=== PATIENT | female | born 1940 | race Caucasian/White ===

== ENCOUNTER 2019-02-03 17:22 | Emergency (ER) | payer MEDICARE ==
[~2019-02-03] VITALS: Ht 165.1 cm; Wt 65.3 kg
[~2019-02-03 17:22] MED LIST: BUPR75TA3; SERT25TA
[2019-02-03 17:24] VITALS: BP 132/57
== END 2019-02-03 19:42 | disposition home or self-care (01) ==
LOC: ER 17:26
DX: R53.1 Weakness (principal); F32.9 Major depressive disorder, single episode, unspecified; Z60.2 Problems related to living alone

== ENCOUNTER 2021-04-09 11:51 | Inpatient (IN) | payer OTHER, MEDICARE ==
[~2021-04-09] VITALS: Ht 152.4 cm; Wt 55.8 kg
--- NOTE | 2021-04-09 12:13 | NUR ---
BIB Sister "Long time history of depression was refer here to see Psych" Patient a/ox4, breathing even and unlabored, no sob noted. Assisted to bed.
[2021-04-09 12:30] LABS: BASOPHILS % (AUTO) 0.2 % (0.0-2.0); EOSINOPHILS % (AUTO) 0.4 % (0.0-6.0); HEMATOCRIT 37 % (33-45); HEMOGLOBIN 12.4 g/dL (11.5-14.8); LYMPHOCYTES # (AUTO) 0.9 K/uL (0.8-4.8); LYMPHOCYTES % (AUTO) 9.1 % (20.0-44.0); MEAN CORPUSCULAR HGB CONC 33 g/dl (31.0-36.0); MEAN CORPUSCULAR VOLUME 79 fL (82-100); MONOCYTES # (AUTO) 0.8 K/uL (0.1-1.30); MONOCYTES % (AUTO) 7.6 % (2.0-12.0); NEUTROPHILS # (AUTO) 8.4 K/uL (1.8-8.9); NEUTROPHILS % (AUTO) 82.7 % (43.0-81.0); PLATELET COUNT (AUTO) 431 K/uL (150-450); RED BLOOD CELL COUNT(AUTO) 4.75 MIL/uL (4.0-5.2); WHITE BLOOD COUNT (AUTO) 10.2 K/uL (4.3-11.0)
--- NOTE | 2021-04-09 12:30 | NUR ---
BLOOD DRAWN AND SENT.
[2021-04-09 12:36] LABS: CALCIUM, SERUM 9.3 mg/dL (8.5-10.1); CARBON DIOXIDE 24 mmol/L (21-32); CHLORIDE 93 mmol/L (98-107); CREATININE 0.8 mg/dL (0.6-1.3); GLUCOSE 149 mg/dL (74-106); POTASSIUM 4.1 mmol/L (3.5-5.1); SODIUM SERUM 126 mmol/L (136-145); UREA NITROGEN, BLOOD 13 mg/dL (7-18)
--- NOTE | 2021-04-09 12:40 | NUR ---
[facility] UA OBTAINED AND SENT TOLAB
[2021-04-09 12:47] LABS: BILIRUBIN,URINE Negative (NEGATIVE); COLOR,URINE YELLOW (YELLOW); LEUKOCYTE ESTERASE ,URINE Negative (NEGATIVE); NITRITE, URINE Negative (NEGATIVE); PH,URINE 6.5 (5.0-8.0); PROTEIN,URINE Negative (NEGATIVE); UGLUCOSE Negative (NEGATIVE); UROBILINOGEN,URINE 0.2 EU/dL (0.2)
[2021-04-09 12:51] LABS: ACETAMINOPHEN 0 ug/ml (10-30); ALANINE AMINOTRANSFERASE 33 U/L (12-78); ALBUMIN 4.4 g/dL (3.4-5.0); ALCOHOL, BLOOD < 3 mg/dL (0-0); ALKALINE PHOSPHATASE 63 U/L (46-116); ASPARTATE AMINOTRANSFERASE 24 U/L (15-37); BILIRUBIN,DIRECT 0.2 mg/dL (0.0-0.2); BILIRUBIN,TOTAL 0.7 mg/dL (0.2-1.0); TOTAL PROTEIN, SERUM 7.5 g/dL (6.4-8.2)
--- NOTE | 2021-04-09 12:54 | NUR ---
covid swab sent.
[2021-04-09] MEDS ORDERED: MELO-105 PO (13:05)
[2021-04-09] MEDS ORDERED: ASPI-1420 PO (13:05)
[2021-04-09] MEDS ORDERED: SERT100T PO (13:05)
[2021-04-09] MEDS ORDERED: NAPR-1009 PO (13:05)
[2021-04-09] MEDS ORDERED: OMEP40CA21 PO (13:05)
[2021-04-09] MEDS ORDERED: LORA-259 PO (13:05)
[2021-04-09] MEDS ORDERED: ATOR20TA PO (13:05)
[2021-04-09] MEDS ORDERED: ANAG0.5C3 PO (13:05)
--- NOTE | 2021-04-09 13:31 | NUR ---
COAGULATOR SAW THE PATIENT AND WILL CALL [place] BAILIFF. LEFT A MESSAGE TO ART COMPUTER SYSTEMS TECHNOLOGY INSTRUCTOR.
--- NOTE | 2021-04-09 13:35 | NUR ---
Human Resources Intern consult: public services assistant consult requested for patient who is seeking psychiatric treatment. Patient is a 80-year-old, female. SW met with patient at her bedside in the emergency department. Patient presents with a depressed mood and flat affect. Patient's sister, Yomaira ([phone]) was at the bedside. Patient is alert and oriented x4. Per chart, patient was brought in by her sister on 04/09/21, seeking psychiatric treatment for patient with a history of Depression. Patient presents anxious and selectively mute. Patient was able to answer assessment questions by stating, 'yes' or 'no' or answer with short responses. Patient's sister was able to provide SW information to complete assessment. Patient's sister stated that the patient has been experiencing symptoms of Anxiety and Depression within the last week. Patient's sister stated that the patient has not been speaking much due to anxiousness. Patient currently lives alone at [address] [place] [address], [address] [address]; [phone]. Patient's sister stated that she provides the patient with support as needed. Patient is independent with her ADL's. Patient currently receives SSI. Patient's sister reported a "long history of Depression." Patient has been prescribed medication for Depression. Patient denied history of substance use. Patient denied current suicidal or homicidal ideation. SW offered patient outpatient counseling resources. Patient accepted the resources and thanked GREGORY. Patient and patient's sister requested voluntary GPS admission. SW will follow up with intake department regarding GPS admission and contact mold holder, Hossein Farias LCSW, to evaluate the patient. PLAN: SW will contact intake department for GPS admission request and contact mold holder, Hossein Farias LCSW to evaluate the patient. RESOURCES: Counseling--[facility]patient [facility] [address], [place] [address] (Specializes in in-depth psychotherapy for emotional distress: anxiety, depression, interpersonal conflicts, life transitions, childhood abuse) [facility] [address] [place] [address] (Assist with solving problem marital difficulties, separation & divorce, aging parents, & grief, chronic & terminal illness) [facility] [address] [place] [address] (Deal with loss & grief, anxiety, marital difficulties) [facility] [address], [address] [facility] [place] [address] (Provide in-home mental services to people who are incapable of leaving their homes) [facility] [address] [place] [address] Partial Hospitalization Program and Outpatient at [facility] [address] [place], [place] [phone] [facility] [address] [place] [id number] PSYCHIATRIC OUTPATIENT SERVICES [facility] Partial Hospitalization and Intensive Outpatient Program (Managed Care and [place] Only)[address] [facility] [phone] [facility] Partial Hospitalization and Outpatient [id number] [place], [place] [phone] [facility] Partial Hospitalization and Outpatient [id number] [place], [place] [phone] [address] [id number] [facility] [phone] [facility] [address] Partial Hospitalization and Outpatient [id number] [facility] [address] [phone]
--- NOTE | 2021-04-09 13:40 | NUR ---
Care Navigator note: GREGORY contacted intake department, [phone] to discuss patient's eligibility for GPS admission. Jackelin at intake dept. stated that she is unsure at this time and will follow up with GREGORY later today. GREGORY contacted triage clinician, Hossein Farias LCSW, , to evaluate the patient. Pending assessment.
--- NOTE | 2021-04-09 15:00 | NUR ---
ART IMAGERY ANALYST AT BEDSIDE FOR EVAL
--- NOTE | 2021-04-09 15:57 | NUR ---
REPORT GIVEN TO DEANDRE GARCIA FOR BRITTANY.
[2021-04-09] MEDS ORDERED: MAG HYDROX/AL HYDROX/SIMETH 30 ML UDC PO PRN (17:00)
[2021-04-09] MEDS ORDERED: MAGNESIUM HYDROXIDE 30 ML UDC PO PRN (17:00)
[2021-04-09] MEDS ORDERED: BLOOD SUGAR DIAGNOSTIC 1 EACH STRIP IN ONE (17:00)
[2021-04-09] MEDS ORDERED: ACETAMINOPHEN 325 MG TABLET PO PRN (17:00)
[2021-04-09 17:02] VITALS: BP 162/81
--- NOTE | 2021-04-09 17:34 | NUR ---
GPS ADMISSION NOTE: RECEIVED PATIENT FROM [facility] PATIENT ARRIVED ON THIS UNIT WITH 1 EMT ESCORT. PATIENT ADMITTED ON A 5150 HOLD FOR GD PER HOLD PATIENT IS CONFUSED AND DISORGANIZED .DEPRESSED AND FLAT AFFECT VERY POOR INSIGHT PATIENT HAS POOR INPOLSE CONTROL AND IMPAIRED JUDGMENT. THE 5150 WAS REVIEWED AND THE DOCUMENTATION IN THE 5150 HOLD APPEARS TO REFLECT THE PRESENTATION OF THE PATIENT. UPON FACE TO FACE ASSESSMENT PATIENT IS CURRENTLY LYING IN BED AWAKE, HAS NO S/S OR COMPLAINTS OF PAIN. PATIENT IS DISPLAYING NO S/S OF APPARENT DISTRESS. PATIENT BREATHING IS UNLABORED WITH EQUAL RISE AND FALL OF THE CHEST. PATIENT IS ALERT AND ORIENTATED X 1 ON ROOM AIR. PATIENT ASSISTED WITH TURING AND REPOSITIONING Q2HR AND PRN FOR COMFORT AND CIRCULATION. PATIENT HAS NO NEEDS AT THIS TIME. PATIENT IS NOTED TO BE DEPRESSED , DISHEVELED, DISORGANIZED,CONFUSED PATIENT DENIES SUICIDE IDEATIONS AND HOMICIDAL IDEATIONS AT THIS TIME. PATIENT IS UNDER THE PSYCHIATRIC CARE OF DR. SHARMA NOTIFIED WITH ADMITTING ORDERS . PATIENT BELONGINGS WERE INVENTORIED AND CHECKED FOR CONTRABAND. ALL CONTRABAND REMOVED AND STORED IN PATIENT HALLWAY LOCKER. PATIENT ADVANCED DIRECTIVES PREFERENCE, IMMUNIZATIONS QUESTIONER COMPLETED. PATIENT REFUSED PICTURES, SKIN ASSESSMENT, PATIENTS RIGHTS HANDBOOK, AND ALSO REFUSED TO SIGNS ALL PAPER WORK. PATIENT ORIENTATED TO ROOM, FLOOR, AND STAFF WITH ALL QUESTIONS ANSWERED. PATIENT EDUCATED ON THE USE OF THE CALL MICHELE. PATIENT BED SIDE RAILS ARE UP X 2 FOR SAFETY. PATIENT BED IS LOCKED, LOW AND I WILL CONTINUE TO MONITOR THIS PATIENT Q 15 MIN WITH THE HELP OF STAFF TO MAINTAIN SAFETY.
[2021-04-09] MEDS: LORAZEPAM 0.5 MG TABLET PO PRN (20:16)
--- NOTE | 2021-04-09 20:19 | NUR ---
RN NOTES: ANXIETY PT. C/O ANXIOUS ATIVAN 0.5 MG PO PRN GIVEN PER PT. REQUEST , WILL CONTINUE TO MONITOR.
[2021-04-09 20:36] VITALS: BP 170/78
[2021-04-09 21:30] VITALS: BP 150/78
[2021-04-09 22:30] VITALS: BP 140/75
[2021-04-09 23:50] VITALS: BP 135/77
[2021-04-10 08:00] VITALS: BP 159/68
[2021-04-10] MEDS: ENSURE ENLIVE CHOC 237 ML CAN PO SCH ×2 (08:45→17:35)
[2021-04-10] MEDS ORDERED: MELOXICAM 7.5 MG TABLET PO PRN (10:30)
[2021-04-10] MEDS: SERTRALINE HCL 25 MG TABLET PO SCH (12:49)
[2021-04-10 16:00] VITALS: BP 160/85
--- NOTE | 2021-04-10 17:33 | NUR ---
URINE OBTAINED AND LAB NOTIFIED TO WIRELESS SALES REPRESENTATIVE SPECIMEN.
[2021-04-10] MEDS: ANAGRELIDE HCL 0.5 MG CAPSULE PO SCH (17:35)
[2021-04-10 20:00] VITALS: BP 159/74
[2021-04-10 20:10] VITALS: BP 136/56
[2021-04-10] MEDS: NAPROXEN 500 MG TABLET PO PRN (22:15)
--- NOTE | 2021-04-10 22:15 | NUR ---
GPS RN NOTES NAPROXEN GIVEN AT THIS FOR PAIN PER PATIENT REQUEST.
[2021-04-10] MEDS: ATORVASTATIN 10 MG TABLET PO SCH (22:16)
[2021-04-11] MEDS: TEMAZEPAM 7.5 MG CAPSULE PO PRN ×2 (00:08→21:18)
--- NOTE | 2021-04-11 00:13 | NUR ---
GPS RN NOTES PATIENT REPORT OF HAVING HARD TIME SLEEPING, I OFFERED IF SHE WANTS SOME SLEEPING MEDICATION. SHE SAID NO AT FIRST AND LATER CHANGED HER MIND. GIVEN RESTORIL 7.5 MG PRN. WILL REASSESS.
[2021-04-11] MEDS: LORAZEPAM 0.5 MG TABLET PO PRN (05:21)
--- NOTE | 2021-04-11 05:21 | NUR ---
GPS RN NOTES PATIENT ASKED FOR ATIVAN AT THIS TIME. GIVEN 0.5 MG OF ATIVAN PRN.
--- NOTE | 2021-04-11 06:54 | NUR ---
GPS RN CLOSING NOTE PATIENT IN BED WITH EYES CLOSED, EASY TO AROUSE. NO S/S OF DISTRESS. NO C/O PAIN DONNA. ALL NEEDS ATTENDED. SCHED MEDS ADMINISTERED. SAFETY KEPT THE WHOLE SHIFT. DID NOT REPORT ANY SUICIDAL IDEATION OR HOMICIDAL IDEATION. NO SIGNIFICANT CHANGE SINCE LAST SHIFT. WILL ENDORSE CARE TO MORNING RN.
[2021-04-11 07:07] LABS: BASOPHILS % (AUTO) 0.4 % (0.0-2.0); HEMATOCRIT 35 % (33-45); HEMOGLOBIN 11.8 g/dL (11.5-14.8); LYMPHOCYTES # (AUTO) 1.6 K/uL (0.8-4.8); LYMPHOCYTES % (AUTO) 19.1 % (20.0-44.0); MEAN CORPUSCULAR HGB CONC 34 g/dl (31.0-36.0); MEAN CORPUSCULAR VOLUME 79 fL (82-100); MONOCYTES # (AUTO) 0.8 K/uL (0.1-1.30); MONOCYTES % (AUTO) 9.3 % (2.0-12.0); NEUTROPHILS # (AUTO) 5.9 K/uL (1.8-8.9); NEUTROPHILS % (AUTO) 70.2 % (43.0-81.0); PLATELET COUNT (AUTO) 425 K/uL (150-450); RED BLOOD CELL COUNT(AUTO) 4.49 MIL/uL (4.0-5.2); WHITE BLOOD COUNT (AUTO) 8.4 K/uL (4.3-11.0)
[2021-04-11 07:33] LABS: CALCIUM, SERUM 9.4 mg/dL (8.5-10.1); CREATININE 0.7 mg/dL (0.6-1.3); POTASSIUM 4.2 mmol/L (3.5-5.1)
[2021-04-11 08:00] VITALS: BP 156/73
[2021-04-11] MEDS: ENSURE ENLIVE CHOC 237 ML CAN PO SCH ×2 (08:27→16:18)
[2021-04-11] MEDS: PANTOPRAZOLE 40 MG/PACK PACK NG SCH (08:27)
[2021-04-11] MEDS: ASPIRIN EC 81 MG TABLET.DR PO SCH (08:27)
[2021-04-11] MEDS: NAPROXEN 500 MG TABLET PO PRN (08:27)
[2021-04-11] MEDS: ANAGRELIDE HCL 0.5 MG CAPSULE PO SCH ×2 (08:35→16:32)
[2021-04-11] MEDS: SERTRALINE HCL 25 MG TABLET PO SCH (12:06)
[2021-04-11 16:00] VITALS: BP 149/72
[2021-04-11 20:26] VITALS: BP 165/92
[2021-04-11] MEDS: ATORVASTATIN 10 MG TABLET PO SCH (21:12)
[2021-04-11] MEDS: hydrALAZINE HCL 25 MG TABLET PO PRN (21:16)
[2021-04-12 08:00] VITALS: BP 159/76
[2021-04-12] MEDS: ASPIRIN EC 81 MG TABLET.DR PO SCH (08:42)
[2021-04-12] MEDS: PANTOPRAZOLE 40 MG/PACK PACK NG SCH (08:42)
[2021-04-12] MEDS: ENSURE ENLIVE CHOC 237 ML CAN PO SCH ×2 (08:44→17:06)
[2021-04-12] MEDS: ANAGRELIDE HCL 0.5 MG CAPSULE PO SCH ×2 (08:56→17:05)
--- NOTE | 2021-04-12 12:13 | NUR ---
Initial Discharge Plan; Pt currently lives alone in an apartment located on [address] [place] [address] [address] [place] [address]; ([phone]). Per pt, she would like to return home after discharge. SW will work with the pt and MD regarding appropriate discharge planning. SW will form a safe and proper discharge.
[2021-04-12] MEDS: SERTRALINE HCL 25 MG TABLET PO SCH (12:18)
--- NOTE | 2021-04-12 15:32 | NUR ---
Family Contact: GREGORY contacted the pts sister, Yomaira ([phone]) and discussed pts potential discharge plan and treatment plan. She stated that she is not DPOA and should return home.
--- NOTE | 2021-04-12 15:35 | NUR ---
Individual Intervention: SW met with pt, pt inquired "Can I leave the hospital to go to work?" SW informed pt that she cannot leave hospital until she is stabilized and doctor approves discharge plan.
[2021-04-12 16:00] VITALS: BP 160/77
[2021-04-12 20:00] VITALS: BP 162/70
[2021-04-12] MEDS: hydrALAZINE HCL 25 MG TABLET PO PRN (20:36)
[2021-04-12] MEDS: ATORVASTATIN 10 MG TABLET PO SCH (21:45)
[2021-04-12] MEDS: TEMAZEPAM 7.5 MG CAPSULE PO PRN (21:46)
--- NOTE | 2021-04-12 21:48 | NUR ---
GPS RN NOTES: RESTORIL 7.5MG 1TAB GIVEN PO PRN ORDERED AT 2146. WILL CONTINUE TO MONITOR.
--- NOTE | 2021-04-13 06:38 | NUR ---
GPS RN CLOSING NOTES: PATIENT IS CURRENTLY SLEEPING. PATIENT SLEPT 5HRS THIS SHIFT. PATIENT WAS COMPLIANT WITH MEDICATION THIS SHIFT. NO S/S OF DISTRESS. RESPIRATION EVEN AND UNLABORED WITH EQUAL RISE AND FALL OF THE CHEST ON ROOM AIR. ALL PATIENT CARE NEEDS HAVE BEEN MET ANTICIPATED. BED IN LOWEST POSITION AND LOCKED, WITH SIDE RAILS UP X2 FOR SAFETY. WILL CONTINUE TO MONITOR FOR SAFETY, MOOD AND BEHAVIOR AND ENDORSE TO AM SHIFT.
[2021-04-13 08:00] VITALS: BP 156/78
[2021-04-13] MEDS: ANAGRELIDE HCL 0.5 MG CAPSULE PO SCH ×2 (08:26→18:01)
[2021-04-13] MEDS: ASPIRIN EC 81 MG TABLET.DR PO SCH (08:26)
[2021-04-13] MEDS: PANTOPRAZOLE 40 MG/PACK PACK NG SCH (08:27)
[2021-04-13] MEDS: ENSURE ENLIVE CHOC 237 ML CAN PO SCH ×2 (08:27→17:53)
[2021-04-13] MEDS ORDERED: AMLODIPINE BESYLATE 5 MG TABLET PO SCH (09:30)
[2021-04-13] MEDS: SERTRALINE HCL 25 MG TABLET PO SCH (13:58)
[2021-04-13 16:00] VITALS: BP 151/77
[2021-04-13 20:00] VITALS: BP 153/68
[2021-04-13 20:45] VITALS: BP 153/68
[2021-04-13] MEDS: ATORVASTATIN 10 MG TABLET PO SCH (21:14)
--- NOTE | 2021-04-14 00:43 | NUR ---
MS RN NOTES C/O GENERALIZED PAIN,MEDICATED WITH NAPROXEN 500MG PO ORDERED.
--- NOTE | 2021-04-14 06:51 | NUR ---
RN NOTE PATIENT SLEPT ABOUT 6 HOURS AT NIGHT. MED COMPLAINT. AMBULATORY/STEADY. NO ACUTE CHANGES NOTED THROUGH OUT THE SHIFT. WILL ENDORSE TO AM RN FOR CONTINUITY OF CARE.
[2021-04-14 08:00] VITALS: BP 148/79
[2021-04-14] MEDS: ENSURE ENLIVE CHOC 237 ML CAN PO SCH ×2 (08:33→16:58)
[2021-04-14] MEDS: PANTOPRAZOLE 40 MG/PACK PACK NG SCH (08:34)
[2021-04-14] MEDS: AMLODIPINE BESYLATE 5 MG TABLET PO SCH (08:34)
[2021-04-14] MEDS: ASPIRIN EC 81 MG TABLET.DR PO SCH (08:34)
[2021-04-14] MEDS: ANAGRELIDE HCL 0.5 MG CAPSULE PO SCH ×2 (08:36→16:57)
[2021-04-14] MEDS: SERTRALINE HCL 25 MG TABLET PO SCH (12:06)
[2021-04-14] MEDS: LORAZEPAM 0.5 MG TABLET PO PRN (14:17)
--- NOTE | 2021-04-14 14:17 | NUR ---
RN NOTES: ANXIETY PT. C/O ANXIOUS ATIVAN 0.5 MG PO PRN GIVEN PER PT. REQUEST , WILL CONTINUE TO MONITOR.
--- NOTE | 2021-04-14 14:33 | NUR ---
Probable Cause Hearing: Pts [phone] hold was upheld for grave disability.
[2021-04-14 16:00] VITALS: BP 154/71
--- NOTE | 2021-04-14 19:45 | NUR ---
GPS RN NOTES RECEIVED WALKING IN THE HALLWAYS WITH STEADY GAIT,ABLE VERBALIZED NEEDS,CALM AND QUIET,PLEASANT TO TALK WITH,COOPERATIVE AND MED COMPLIANT PER REPORT.WILL CONTINUE TO MONITOR BEHAVIOR.
[2021-04-14 20:00] VITALS: BP 152/65
[2021-04-14 20:10] VITALS: BP 152/65
[2021-04-14] MEDS: ATORVASTATIN 10 MG TABLET PO SCH (22:00)
[2021-04-14] MEDS: TEMAZEPAM 7.5 MG CAPSULE PO PRN (22:04)
[2021-04-15] MEDS: NAPROXEN 500 MG TABLET PO PRN (00:43)
--- NOTE | 2021-04-15 03:04 | NUR ---
GPS RN NOTES C/O HEADACHE,TYLENOL 650MG PO GIVEN PER PATIENT REQUEST,WITH ORDER
[2021-04-15 07:11] LABS: BASOPHILS % (AUTO) 0.5 % (0.0-2.0); EOSINOPHILS % (AUTO) 1.7 % (0.0-6.0); HEMATOCRIT 35 % (33-45); HEMOGLOBIN 11.4 g/dL (11.5-14.8); LYMPHOCYTES # (AUTO) 1.7 K/uL (0.8-4.8); LYMPHOCYTES % (AUTO) 22.4 % (20.0-44.0); MEAN CORPUSCULAR HGB CONC 33 g/dl (31.0-36.0); MEAN CORPUSCULAR VOLUME 79 fL (82-100); MONOCYTES # (AUTO) 0.8 K/uL (0.1-1.30); MONOCYTES % (AUTO) 10.1 % (2.0-12.0); NEUTROPHILS % (AUTO) 65.3 % (43.0-81.0); PLATELET COUNT (AUTO) 368 K/uL (150-450); RED BLOOD CELL COUNT(AUTO) 4.34 MIL/uL (4.0-5.2); WHITE BLOOD COUNT (AUTO) 7.6 K/uL (4.3-11.0)
[2021-04-15 07:30] LABS: BILIRUBIN,TOTAL 0.6 mg/dL (0.2-1.0); CALCIUM, SERUM 9.4 mg/dL (8.5-10.1); CREATININE 0.7 mg/dL (0.6-1.3)
[2021-04-15 08:00] VITALS: BP 156/75
[2021-04-15] MEDS: PANTOPRAZOLE 40 MG/PACK PACK NG SCH (08:15)
[2021-04-15] MEDS: AMLODIPINE BESYLATE 5 MG TABLET PO SCH (08:15)
[2021-04-15] MEDS: ASPIRIN EC 81 MG TABLET.DR PO SCH (08:15)
[2021-04-15] MEDS: ANAGRELIDE HCL 0.5 MG CAPSULE PO SCH ×2 (08:16→16:23)
[2021-04-15] MEDS: ENSURE ENLIVE CHOC 237 ML CAN PO SCH ×2 (08:23→16:23)
[2021-04-15] MEDS: SERTRALINE HCL 25 MG TABLET PO SCH (12:51)
--- NOTE | 2021-04-15 13:05 | NUR ---
UR Note: GREGORY faxed a clinical to Fransisca to the fax number: [facility] Attn:Arg to fax# [phone]. Auth#[id number]
[2021-04-15] MEDS: LISINOPRIL (10MG) 10 MG TABLET PO SCH (13:41)
[2021-04-15 16:00] VITALS: BP 127/68
[2021-04-15] MEDS: LORAZEPAM 0.5 MG TABLET PO PRN (18:37)
[2021-04-15 20:51] VITALS: BP 148/77
[2021-04-15] MEDS: ATORVASTATIN 10 MG TABLET PO SCH (21:08)
--- NOTE | 2021-04-15 21:49 | NUR ---
GPS-RN NOTES: CT HEAD REFUSAL PATIENT REFUSED CT HEAD FOR TONIGHT. DESPITE OF EXPLANATION THE RISKS AND BENEFITS BUT PATIENT CONTINUED TO REFUSE. WILL CONTINUITY WITH CARE.
[2021-04-15] MEDS: TEMAZEPAM 7.5 MG CAPSULE PO PRN (22:24)
--- NOTE | 2021-04-15 22:26 | NUR ---
RN NOTES: INSOMNIA PT. C/O UNABLE TO SLEEP , RESTORIL 7.5 MG PO PRN GIVEN PER PT. REQUEST, WILL CONTINUE TO MONITOR.
--- NOTE | 2021-04-16 06:31 | NUR ---
RN NOTES: CT HEAD REFUSAL PATIENT REFUSED CT HEAD IN TRIM SETTER. DESPITE OF EXPLANATION THE RISKS AND BENEFITS BUT PATIENT CONTINUED TO REFUSE. PER PT. I DONT WANT ANY CT SCAN , CHARGE NURSE MADE AWARE WILL ENDORSE TO DAY NURSE .
[2021-04-16 08:00] VITALS: BP 137/81
[2021-04-16] MEDS: PANTOPRAZOLE 40 MG/PACK PACK NG SCH (08:06)
[2021-04-16] MEDS: LISINOPRIL (10MG) 10 MG TABLET PO SCH (08:06)
[2021-04-16] MEDS: AMLODIPINE BESYLATE 5 MG TABLET PO SCH (08:06)
[2021-04-16] MEDS: ASPIRIN EC 81 MG TABLET.DR PO SCH (08:06)
[2021-04-16] MEDS: ENSURE ENLIVE CHOC 237 ML CAN PO SCH ×2 (08:10→16:40)
[2021-04-16] MEDS: ANAGRELIDE HCL 0.5 MG CAPSULE PO SCH ×2 (09:29→16:40)
[2021-04-16] MEDS: SERTRALINE HCL 25 MG TABLET PO SCH (12:04)
[2021-04-16] MEDS: LORAZEPAM 0.5 MG TABLET PO PRN (14:31)
[2021-04-16 16:00] VITALS: BP 138/65
--- NOTE | 2021-04-16 19:30 | NUR ---
GPS RN NOTE, RECEIVED PATIENT AWAKE AND IN BED, NO S/S OR COMPLAINTS OF PAIN AT THIS TIME. PATIENT IS DISPLAYING NO S/S OF APPARENT DISTRESS AT THIS TIME. PATIENT BREATHING IS UNLABORED WITH EQUAL RISE AND FALL OF THE CHEST. PATIENT IS ALERT AND ORIENTED X 3 ON ROOM AIR WITH A SPO2 97%. PATIENT IS COMPLIANT WITH MEDICATIONS, ANXIOUS, ISOLATES IN ROOM, MAKES NEEDS KNOWN, AND IS COOPERATIVE. PATIENT DENIES SUICIDAL AND HOMICIDAL IDEATIONS AT THIS TIME. PATIENT ASSISTED WITH TURNING AND REPOSITIONING Q2HR AND PRN FOR COMFORT AND CIRCULATION. PATIENT HAS NO NEEDS AT THIS TIME. PATIENT EDUCATED ON THE USE OF THE CALL LIGHT. PATIENT BED SIDE RAILS UP X 2 FOR SAFETY. PATIENT BED IS LOCKED, LOW, WITH BED ALARM ON. WILL CONTINUE TO MONITOR THIS PATIENT Q15 MINUTES WITH THE HELP OF STAFF TO MAINTAIN SAFETY.
[2021-04-16 20:30] VITALS: BP 150/68
[2021-04-16] MEDS: ATORVASTATIN 10 MG TABLET PO SCH (21:05)
[2021-04-16] MEDS: MIRTAZAPINE 15 MG TABLET PO SCH (21:06)
[2021-04-17 08:00] VITALS: BP 143/62
[2021-04-17] MEDS: ASPIRIN EC 81 MG TABLET.DR PO SCH (08:22)
[2021-04-17] MEDS: ANAGRELIDE HCL 0.5 MG CAPSULE PO SCH ×2 (08:22→16:13)
[2021-04-17] MEDS: PANTOPRAZOLE 40 MG/PACK PACK NG SCH (08:22)
[2021-04-17] MEDS: LISINOPRIL (10MG) 10 MG TABLET PO SCH (08:23)
[2021-04-17] MEDS: AMLODIPINE BESYLATE 5 MG TABLET PO SCH (08:23)
[2021-04-17] MEDS: ENSURE ENLIVE CHOC 237 ML CAN PO SCH ×2 (08:31→16:13)
[2021-04-17 09:26] LABS: CALCIUM, SERUM 9.5 mg/dL (8.5-10.1); CREATININE 0.7 mg/dL (0.6-1.3); POTASSIUM 4.2 mmol/L (3.5-5.1)
[2021-04-17] MEDS: SERTRALINE HCL 25 MG TABLET PO SCH (12:29)
[2021-04-17] MEDS: LORAZEPAM 0.5 MG TABLET PO PRN (14:22)
[2021-04-17 16:00] VITALS: BP 137/66
[2021-04-17 20:23] VITALS: BP 130/60
[2021-04-17] MEDS: ATORVASTATIN 10 MG TABLET PO SCH (21:06)
[2021-04-17] MEDS: MIRTAZAPINE 15 MG TABLET PO SCH (21:07)
[2021-04-18] MEDS: LORAZEPAM 0.5 MG TABLET PO PRN ×2 (03:38→19:53)
--- NOTE | 2021-04-18 03:38 | NUR ---
GPS RN NOTE, PATIENT HAS A COMPLAINT OF FEELING ANXIOUS AND IS REQUESTING ATIVAN AT THIS TIME. PATIENT VITAL SIGNS ARE STABLE. GAVE ATIVAN 0.5MG PO Q6HR PRN ORDERED. WILL REASSESS FOR ANXIETY AND I WILL CONTINUE TO MONITOR THIS PATIENT WITH THE HELP OF STAFF.
[2021-04-18] MEDS: PANTOPRAZOLE 40 MG/PACK PACK NG SCH (07:30)
[2021-04-18 08:00] VITALS: BP 162/64
[2021-04-18] MEDS: ENSURE ENLIVE CHOC 237 ML CAN PO SCH ×2 (08:00→17:25)
[2021-04-18] MEDS: ASPIRIN EC 81 MG TABLET.DR PO SCH (09:32)
[2021-04-18] MEDS: ANAGRELIDE HCL 0.5 MG CAPSULE PO SCH ×2 (09:32→17:31)
[2021-04-18] MEDS: AMLODIPINE BESYLATE 5 MG TABLET PO SCH (09:33)
[2021-04-18] MEDS: LISINOPRIL (10MG) 10 MG TABLET PO SCH (09:34)
[2021-04-18] MEDS: SERTRALINE HCL 25 MG TABLET PO SCH (12:31)
[2021-04-18 16:00] VITALS: BP 131/70
--- NOTE | 2021-04-18 19:53 | NUR ---
GPS-RN NOTE: ANXIETY PATIENT C/O FEELING ANXIOUS. PRN ATIVAN 0.5MG PO GIVEN. WILL CONTINUE TO MONITOR.
[2021-04-18 20:52] VITALS: BP 143/71
[2021-04-18] MEDS: MIRTAZAPINE 15 MG TABLET PO SCH (21:20)
[2021-04-18] MEDS: ATORVASTATIN 10 MG TABLET PO SCH (21:20)
[2021-04-18] MEDS: TEMAZEPAM 7.5 MG CAPSULE PO PRN (22:31)
--- NOTE | 2021-04-18 22:32 | NUR ---
GPS RN NOTES: INSOMNIA PATIENT C/O INABILITY TO SLEEP. PRN RESTORIL 7.5 MG PO GIVEN. WILL CONTINUE TO MONITOR.
[2021-04-19 08:00] VITALS: BP 141/70
[2021-04-19] MEDS: ASPIRIN EC 81 MG TABLET.DR PO SCH (08:14)
[2021-04-19] MEDS: AMLODIPINE BESYLATE 5 MG TABLET PO SCH (08:14)
[2021-04-19] MEDS: ENSURE ENLIVE CHOC 237 ML CAN PO SCH ×2 (08:14→16:52)
[2021-04-19] MEDS: PANTOPRAZOLE 40 MG/PACK PACK NG SCH (08:14)
[2021-04-19] MEDS: LISINOPRIL (10MG) 10 MG TABLET PO SCH (08:14)
[2021-04-19] MEDS: ANAGRELIDE HCL 0.5 MG CAPSULE PO SCH ×2 (08:15→16:52)
[2021-04-19] MEDS: SERTRALINE HCL 25 MG TABLET PO SCH (12:00)
[2021-04-19] MEDS: LORAZEPAM 0.5 MG TABLET PO PRN ×2 (14:56→21:02)
--- NOTE | 2021-04-19 15:03 | NUR ---
GPS-RN NOTE: ANXIETY PATIENT C/O FEELING ANXIOUS. PRN ATIVAN 0.5MG PO GIVEN. WILL CONTINUE TO MONITOR.
[2021-04-19 16:00] VITALS: BP 128/66
[2021-04-19 20:00] VITALS: BP 141/75
[2021-04-19] MEDS: ATORVASTATIN 10 MG TABLET PO SCH (22:12)
[2021-04-19] MEDS: MIRTAZAPINE 15 MG TABLET PO SCH (22:12)
[2021-04-20 08:00] VITALS: BP_SYST 118; BP_SYST 136; BP_DIAS 64; BP_DIAS 67
[2021-04-20] MEDS: ENSURE ENLIVE CHOC 237 ML CAN PO SCH ×2 (08:04→17:07)
[2021-04-20] MEDS: PANTOPRAZOLE 40 MG/PACK PACK NG SCH (08:05)
[2021-04-20] MEDS: LORAZEPAM 0.5 MG TABLET PO PRN ×2 (08:55→18:01)
[2021-04-20] MEDS: LISINOPRIL (10MG) 10 MG TABLET PO SCH (08:56)
[2021-04-20] MEDS: AMLODIPINE BESYLATE 5 MG TABLET PO SCH (08:56)
[2021-04-20] MEDS: ASPIRIN EC 81 MG TABLET.DR PO SCH (08:56)
--- NOTE | 2021-04-20 08:57 | NUR ---
RN NOTE: ANXIETY PT C/O INCREASING ANXIETY. REQUESTING "SOMETHING FOR ANXIETY". ATIVAN 0.5 MG PO PRN ADMINISTERED.
[2021-04-20] MEDS: ANAGRELIDE HCL 0.5 MG CAPSULE PO SCH ×2 (08:59→17:07)
[2021-04-20] MEDS: SERTRALINE HCL 25 MG TABLET PO SCH (12:17)
--- NOTE | 2021-04-20 15:39 | NUR ---
Point of contact: GREGORY called Sara Maloney the Analog Design Engineer. with [facility] ([phone]) to discuss discharge plan and follow up appointments. Analog Design Engineer did not answer, GREGORY left a voicemail and will follow up with watch case polisher at a later time.
[2021-04-20 16:00] VITALS: BP 134/63
--- NOTE | 2021-04-20 18:01 | NUR ---
RN NOTE: ANXIETY PT C/O INCREASING ANXIETY. REQUESTING ATIVAN. ATIVAN 0.5 MG PO PRN ADMINISTERED
[2021-04-20 20:19] VITALS: BP 131/63
[2021-04-20] MEDS: MIRTAZAPINE 15 MG TABLET PO SCH (21:24)
[2021-04-20] MEDS: ATORVASTATIN 10 MG TABLET PO SCH (21:24)
[2021-04-20] MEDS: TEMAZEPAM 7.5 MG CAPSULE PO PRN (23:29)
--- NOTE | 2021-04-20 23:30 | NUR ---
RN NOTE ATTEMPTED TO ADMINISTER RESTORIL 7.5 MG PER PATIENT REQUEST BUT PATIENT CHANGED HER MIND LAST MINUTE. MEDICATION ALREADY OPENED. WILL DISPOSE MEDICATION WITH WITNESS EMMANUEL RN.
[2021-04-21 08:00] VITALS: BP 111/60
[2021-04-21] MEDS: PANTOPRAZOLE 40 MG/PACK PACK NG SCH (08:05)
[2021-04-21] MEDS: ENSURE ENLIVE CHOC 237 ML CAN PO SCH (08:05)
[2021-04-21] MEDS: ASPIRIN EC 81 MG TABLET.DR PO SCH (08:06)
[2021-04-21 08:07] VITALS: BP 111/63
[2021-04-21] MEDS: LISINOPRIL (10MG) 10 MG TABLET PO SCH (08:07)
[2021-04-21] MEDS: AMLODIPINE BESYLATE 5 MG TABLET PO SCH (08:07)
[2021-04-21] MEDS: ANAGRELIDE HCL 0.5 MG CAPSULE PO SCH (08:11)
--- NOTE | 2021-04-21 08:58 | NUR ---
Family Contact: SW contacted the pts sister, Yomaira ([phone]) and inquired if she would be able to picker sister upon discharge. Sister reports that she can pick sister up at 1:00 pm for discharge on 04/21/2021.
--- NOTE | 2021-04-21 09:23 | NUR ---
Point of contact: GREGORY called Sara Maloney the Corrections Sergeant. with [facility] [employer] ([phone]) and inquired about contact information for pts group leader wafer polishing and and psychiatrist. wastewater manager did not answer, GREGORY left a voicemail and will follow up with case management director at a later time.
--- NOTE | 2021-04-21 09:41 | NUR ---
RN-CO: PATIENT IS AWAKE, ALERT AND ORIENTED X4, DENIED PAIN AND DISCOMFORTS. DENIED SUICIDAL AND HOMICIDAL IDEATION, DENIED AUDITORY AND VISUAL HALLUCINATION. NO ACUTE DISTRESS NOTED. AWARE OF HER DISCHARGE. MEDICALLY CLEAR FOR DISCHARGE. DR PARSONS WAS PAGED TO GET DISCHARGE ORDERS.
--- NOTE | 2021-04-21 10:15 | NUR ---
RN-CO: DR CRESPO SEEN AND EXAMINED PT AND MEDICALLY CLEARED HER FOR DC.
--- NOTE | 2021-04-21 12:13 | NUR ---
DMV Contact: GREGORY faxed Confidential Morbidity Report to [employer] fax # [phone]
[2021-04-21] MEDS: SERTRALINE HCL 25 MG TABLET PO SCH (12:20)
--- NOTE | 2021-04-21 12:45 | NUR ---
RN-CO: PATIENT WAS INSTRUCTED TO MAKE A FOLLOW UP TO HER PSYCHIATRIST AND ELL TUTOR WITHIN 4 WEEKS AND NEEDED.PRESCRIPTION WAS EXPLAINED TO HER AND TO HER SISTER. ALL BELONGINGS WERE GIVEN BACK TO HER. I ESCORTED HER TO THE HOSPITAL LOBBY.
--- NOTE | 2021-04-21 13:22 | NUR ---
Updated discharge plan: Pt was discharged home to [address] [place] [address]; ([phone]), picked up at 1:00 pm by sister Yomaira Khanna. Pt reported no suicidal or homicidal ideation as well as no auditory and visual hallucinations. Upon discharge the pt appears to be in a euthymic mood and presents with a calm affect. Pt denies suicidal and homicidal ideation as well as auditory and visual hallucinations. Pt appears to be oriented x2 (self and place). Pt will be under the care of public school teacher Dr. Daniel Matthew located at [address] [place] [address]; [phone]. Pt has an appointment scheduled for May 04 1:40 pm. GREGORY will fax discharge paperwork to Dr. Daniel Matthew at [facility] to fax #[phone]. GREGORY was in contact with rn field case manager Sara Rogers with [employer] [employer] at ([phone]), pts rn field case manager will schedule psychiatric follow up appointments for pt. GREGORY will fax psychiatric consult to Sara Rogers at fax #[phone]. Addendum: 04/21/21 at 1409 by GREGORY MCGINNIS GREGORY provided the pt with smoking cessation referrals.
== END 2021-04-21 13:00 | disposition home or self-care (01) | DRG 885 ==
LOC: ER 11:55 → GPS 16:05
PROVIDERS: ADMIT Psychiatry & Neurology Psychosomatic Medicine; ATTEND Nurse Practitioner Acute Care
DX: F33.2 Major depressive disorder, recurrent severe without psychotic features (principal); E22.2 Syndrome of inappropriate secretion of antidiuretic hormone; G25.9 Extrapyramidal and movement disorder, unspecified; E78.5 Hyperlipidemia, unspecified; F41.9 Anxiety disorder, unspecified; F17.210 Nicotine dependence, cigarettes, uncomplicated; Z73.6 Limitation of activities due to disability; I10 Essential (primary) hypertension; K21.9 Gastro-esophageal reflux disease without esophagitis; Z79.899 Other long term (current) drug therapy; Z79.82 Long term (current) use of aspirin; F29 Unspecified psychosis not due to a substance or known physiological condition; M19.90 Unspecified osteoarthritis, unspecified site; T43.225A Adverse effect of selective serotonin reuptake inhibitors, initial encounter; Y92.9 Unspecified place or not applicable; Z91.19 Patient's noncompliance with other medical treatment and regimen; G31.83 Neurocognitive disorder with Lewy bodies; F02.80 Dementia in other diseases classified elsewhere, unspecified severity, without behavioral disturbance, psychotic disturbance, mood disturbance, and anxiety
CPT/HCPCS: 36415; 70450-TC; 80048-TC; 80053-TC; 80061-TC; 80076-TC; 83880; 84300-TC; 85025-TC; 87081-TC; 97116-TC; 97530-TC; C9803; G0480

== ENCOUNTER 2021-09-24 15:30 | Emergency (ER) | payer MEDICARE, OTHER ==
[~2021-09-24] VITALS: Ht 160 cm; Wt 59.0 kg
[~2021-09-24 15:30] MED LIST changes: +ANAG0.5C3 PO; +ASPI-1420 PO; +ATOR20TA PO; -BUPR75TA3; +MELO-105 PO; +NAPR-1009 PO; +OMEP40CA21 PO; -SERT25TA
[2021-09-24 15:39] VITALS: BP 162/81
[2021-09-24] MEDS ORDERED: CLON1TAB PO (15:52)
--- NOTE | 2021-09-24 15:55 | NUR ---
Patient discharged to home in stable condition. Written and verbal after care instructions given. Patient verbalizes understanding of instruction.
== END 2021-09-24 15:55 | disposition home or self-care (01) ==
LOC: ER 15:35
DX: F41.9 Anxiety disorder, unspecified (principal); Z76.0 Encounter for issue of repeat prescription; K21.9 Gastro-esophageal reflux disease without esophagitis; E78.5 Hyperlipidemia, unspecified; M19.90 Unspecified osteoarthritis, unspecified site; Z60.2 Problems related to living alone; Z79.899 Other long term (current) drug therapy; Z79.82 Long term (current) use of aspirin

== ENCOUNTER 2022-07-29 12:05 | Inpatient (IN) | payer MEDICARE ==
[~2022-07-29] VITALS: Ht 162.6 cm; Wt 51.3 kg
[~2022-07-29 12:05] MED LIST changes: +CLON1TAB PO
[2022-07-29] MEDS ORDERED: IV NS 0.9% 500 ML BAG IV ONE (13:00)
[2022-07-29 14:15] LABS: BASOPHILS % (AUTO) 0.3 % (0.0-2.0); EOSINOPHILS % (AUTO) 1.4 % (0.0-6.0); HEMATOCRIT 28 % (33-45); HEMOGLOBIN 8.9 g/dL (11.5-14.8); LYMPHOCYTES % (AUTO) 7.4 % (20.0-44.0); MEAN CORPUSCULAR HGB CONC 31 g/dl (31.0-36.0); MEAN CORPUSCULAR VOLUME 76 fL (82-100); MONOCYTES % (AUTO) 7.9 % (2.0-12.0); NEUTROPHILS # (AUTO) 10.8 K/uL (1.8-8.9); PLATELET COUNT (AUTO) 744 K/uL (150-450); RED BLOOD CELL COUNT(AUTO) 3.73 MIL/uL (4.0-5.2)
--- NOTE | 2022-07-29 14:20 | NUR ---
URINE SAMPLE OBTAINED AND PLACED IN DROP-OFF BOX
--- NOTE | 2022-07-29 14:20 | NUR ---
R HAND AC # 20 SL INSERTED
[2022-07-29 14:47] LABS: ALANINE AMINOTRANSFERASE 52 U/L (12-78); ALBUMIN 3.3 g/dL (3.4-5.0); ALKALINE PHOSPHATASE 66 U/L (46-116); ASPARTATE AMINOTRANSFERASE 31 U/L (15-37); BILIRUBIN,DIRECT 0.1 mg/dL (0.0-0.2); BILIRUBIN,TOTAL 0.4 mg/dL (0.2-1.0); CARBON DIOXIDE 24 mmol/L (21-32); CHLORIDE 94 mmol/L (98-107); CREATININE 0.7 mg/dL (0.6-1.3); GLUCOSE 146 mg/dL (74-106); POTASSIUM 4.4 mmol/L (3.5-5.1); SODIUM SERUM 127 mmol/L (136-145); TOTAL PROTEIN, SERUM 8.8 g/dL (6.4-8.2); UREA NITROGEN, BLOOD 20 mg/dL (7-18)
[2022-07-29 14:47] LABS: BILIRUBIN,URINE NEGATIVE (NEGATIVE); COLOR,URINE YELLOW (YELLOW); LEUKOCYTE ESTERASE ,URINE NEGATIVE (NEGATIVE); NITRITE, URINE NEGATIVE (NEGATIVE); PH,URINE 6.5 (5.0-8.0); PROTEIN,URINE NEGATIVE (NEGATIVE); UGLUCOSE NEGATIVE (NEGATIVE); UROBILINOGEN,URINE 0.2 EU/dL (0.2)
--- NOTE | 2022-07-29 15:12 | NUR ---
MOVE SHEET SUBMITTED.
[2022-07-29] MEDS ORDERED: METF-440 PO (15:27)
[2022-07-29] MEDS ORDERED: MIRT-90 PO (15:27)
[2022-07-29] MEDS ORDERED: AMLO-213 PO (15:27)
[2022-07-29] MEDS ORDERED: SERT100T12 PO (15:27)
[2022-07-29] MEDS ORDERED: LISI10TA29 PO (15:27)
[2022-07-29] MEDS ORDERED: DONE5TAB34 PO (15:27)
[2022-07-29] MEDS ORDERED: LEVO50TA8 PO (15:27)
[2022-07-29] MEDS ORDERED: METO5TAB2 PO (15:27)
[2022-07-29] MEDS ORDERED: PROP10TA68 PO (15:27)
--- NOTE | 2022-07-29 17:08 | NUR ---
COVID SWAB OBTAINED AND PLACED IN DROP-OFF BOX
--- NOTE | 2022-07-29 18:48 | NUR ---
REPORT GIVEN TO RADHA KENDRICK. PATIENT TRANSFERRED TO [facility], ALL CARE ENDORSED
--- NOTE | 2022-07-29 19:30 | NUR ---
RN NOTES PT STILL HAS NO ORDERS PLACED STILL, CHARGE NURSE AWARE, TRADEMARK ATTORNEY AWARE, HOUSING SAP PPM CONSULTANT AWARE.
[2022-07-29 20:00] VITALS: BP 143/69
--- NOTE | 2022-07-29 20:00 | NUR ---
RN NOTES PT RECEIVED IN BED A/O X3 ABLE TO MAKE NEEDS KNOWN. IN NO PAIN OR DISTRESS AT THIS TIME ON ROOM AIR TOLERATING WELL. NOTED WITH IV ACCESS ON THE L HAND 20G S/L FLUSHING WELL. PT AMBULATORY WITH ASSISTANCE. PT ORIENTED TO UNIT AND ROOM CALL LIGHT WITHIN REACH TABLE WITHIN REACH. HOB ELEVATED FOR SAFETY. SKIN INTACT. NO DISCOLORATION NOTED.
--- NOTE | 2022-07-29 23:36 | NUR ---
RN NOTES PT STILL HAS NO ORDERS PLACED STILL, CHARGE NURSE AWARE, SENIOR IT ARCHITECT AWARE, CONSULTING SERVICES PROJECT MANAGER AWARE.
[2022-07-30] MEDS ORDERED: ONDANSETRON HCL/PF 4 MG/2 ML VIAL IVP PRN (01:00)
[2022-07-30] MEDS ORDERED: ACETAMINOPHEN 325 MG TABLET PO PRN (01:00)
[2022-07-30] MEDS ORDERED: Z GUARD REMEDY 4 OZ OINT TP PRN (01:00)
[2022-07-30] MEDS ORDERED: IV LR 1000 ML 1,000 ML IV PRN (01:00)
[2022-07-30] MEDS: HYDROCODONE/APAP 5/325MG TABLET PO PRN ×4 (01:20→17:22)
--- NOTE | 2022-07-30 01:23 | NUR ---
RN NOTES PT REPORTED GENERALIZED PAIN 6/10 ON A NUMERIC PAIN SCALE PRN PAIN MEDICATION PROVIDED TOLERATED WELL.
--- NOTE | 2022-07-30 01:34 | NUR ---
RN NOTES PT REFUSING TO BE CONNECTED TO FLUIDS AT THIS TIME ' ITS VERY UNCOMFORTABLE WHEN IM TRYING TO SLEEP YOU CAN CONNECT ME IN THE MORNING" RISK AND BENEFITS EXPLAINED X3 REFUSED X3
--- NOTE | 2022-07-30 06:44 | NUR ---
RN CLOSING NOTES PT RECEIVED IN BED A/O X3 ABLE TO MAKE NEEDS KNOWN. IN NO PAIN OR DISTRESS AT THIS TIME ON ROOM AIR TOLERATING WELL. NOTED WITH IV ACCESS ON THE L HAND 20G RUNNING LR @80 ML/HR TOLERATING WELL. PT AMBULATORY WITH ASSISTANCE. PT ORIENTED TO UNIT AND ROOM CALL LIGHT WITHIN REACH TABLE WITHIN REACH. HOB ELEVATED FOR SAFETY. WILL ENDORSE CARE TO DAY SHIFT NURSE.
[2022-07-30 07:00] VITALS: BP 143/64
[2022-07-30 07:14] LABS: BASOPHILS # (AUTO) 0.1 K/uL (0.0-0.2); BASOPHILS % (AUTO) 0.8 % (0.0-2.0); EOSINOPHILS % (AUTO) 1.8 % (0.0-6.0); HEMATOCRIT 27 % (33-45); HEMOGLOBIN 8.6 g/dL (11.5-14.8); LYMPHOCYTES # (AUTO) 1.7 K/uL (0.8-4.8); LYMPHOCYTES % (AUTO) 12.4 % (20.0-44.0); MEAN CORPUSCULAR HGB CONC 32 g/dl (31.0-36.0); MEAN CORPUSCULAR VOLUME 76 fL (82-100); MONOCYTES % (AUTO) 7.4 % (2.0-12.0); NEUTROPHILS # (AUTO) 10.7 K/uL (1.8-8.9); NEUTROPHILS % (AUTO) 77.6 % (43.0-81.0); PLATELET COUNT (AUTO) 766 K/uL (150-450); RED BLOOD CELL COUNT(AUTO) 3.61 MIL/uL (4.0-5.2); WHITE BLOOD COUNT (AUTO) 13.8 K/uL (4.3-11.0)
[2022-07-30 07:24] LABS: ALBUMIN 3.2 g/dL (3.4-5.0); BILIRUBIN,TOTAL 0.3 mg/dL (0.2-1.0); CALCIUM, SERUM 9.8 mg/dL (8.5-10.1); CREATININE 0.8 mg/dL (0.6-1.3); MAGNESIUM 2.3 mg/dL (1.8-2.4); PHOSPHORUS 3.9 mg/dL (2.5-4.9); POTASSIUM 4.4 mmol/L (3.5-5.1); TOTAL PROTEIN, SERUM 8.7 g/dL (6.4-8.2)
[2022-07-30 07:40] LABS: THYROID STIMULATING HORMONE 5.553 uIU/mL (0.358-3.74)
[2022-07-30] MEDS: PANTOPRAZOLE 40 MG TABLET.DR PO SCH (08:41)
[2022-07-30] MEDS: MELOXICAM 7.5 MG TABLET PO SCH (08:41)
[2022-07-30] MEDS: ASPIRIN EC 81 MG TABLET.DR PO SCH (08:41)
[2022-07-30] MEDS: SERTRALINE HCL 50 MG TABLET PO SCH (08:42)
[2022-07-30] MEDS: PROPRANOLOL HCL 10 MG TABLET PO SCH ×2 (08:42→17:00)
[2022-07-30] MEDS: LEVOTHYROXINE SODIUM 50 MCG TABLET PO SCH (08:42)
[2022-07-30] MEDS: LISINOPRIL (10MG) 10 MG TABLET PO SCH (08:42)
[2022-07-30] MEDS: METOCLOPRAMIDE HCL 10 MG TABLET PO SCH ×3 (08:42→17:23)
[2022-07-30] MEDS: AMLODIPINE BESYLATE 10 MG TABLET PO SCH (08:43)
[2022-07-30] MEDS: ENOXAPARIN SODIUM 40 MG/0.4 ML DISP.SYRIN SQ SCH (09:00)
[2022-07-30] MEDS: GLUCERNA SHAKE 237 ML CAN PO SCH (17:23)
[2022-07-30] MEDS: MIRTAZAPINE 15 MG TABLET PO SCH (17:23)
--- NOTE | 2022-07-30 19:13 | NUR ---
noc rn opening received patient in bed, a/ox3-4 no s/s of apparent distress on room air. denies pain at this time. patient was eating when i received her. rt. hand #20g running LR @80ml/hr. re-oriented and encouraged with the use of call light. safety in place. will cont. with patient's plan of care.
--- NOTE | 2022-07-30 19:26 | NUR ---
RN CLOSING NOTE PATIENT RECEIVED IN BED AND AWAKE. A/OX3-4 AND ABLE TO VERBALIZE ALL NEEDS. IV ACCESS REMAINS INTACT AND PATENT. PATIENT C/O GENERALIZED BODY PAIN THROUGHOUT SHIFT. RECEIVED PRN NORCO X3 @ 0845, 1245, 1722. TOLERATED WELL. PATIENT OBSERVED AMBULATING WITH PT. AMBULATES WELL WITH ASSIST. TOLERATED ALL MEALS AND OTHER MEDICATIONS WELL. VITAL SIGNS STABLE ON SHIFT. SAFETY MEASURES IN PLACE WITH BED LOW AND LOCKED. SIDE RAIL UP AND CALL LIGHT WITHIN REACH. WILL CONT TO MONITOR.
[2022-07-30 20:00] VITALS: BP 115/54
[2022-07-30] MEDS: DONEPEZIL 5 MG TABLET PO SCH (21:37)
[2022-07-30] MEDS: ATORVASTATIN 10 MG TABLET PO SCH (21:37)
[2022-07-31] MEDS: HYDROCODONE/APAP 5/325MG TABLET PO PRN ×2 (05:00→21:53)
--- NOTE | 2022-07-31 06:49 | NUR ---
noc rn closing note patient in bed, a/ox3-4 with periods of confusion. no s/s of apparent distress on room air. pain managed with medication and heat. patient ambulates with weak gait and assistance. rt. wrist #22g running LR @80mls/hr. all needs attended. all scheduled medications administered. will endorse to morning shift rn for continuity of patient care.
[2022-07-31 07:00] VITALS: BP 137/61
[2022-07-31 07:40] LABS: BASOPHILS % (AUTO) 0.4 % (0.0-2.0); EOSINOPHILS % (AUTO) 1.8 % (0.0-6.0); HEMATOCRIT 22 % (33-45); HEMOGLOBIN 7.1 g/dL (11.5-14.8); LYMPHOCYTES # (AUTO) 0.9 K/uL (0.8-4.8); LYMPHOCYTES % (AUTO) 8.9 % (20.0-44.0); MEAN CORPUSCULAR HGB CONC 32 g/dl (31.0-36.0); MEAN CORPUSCULAR VOLUME 76 fL (82-100); MONOCYTES # (AUTO) 0.8 K/uL (0.1-1.30); MONOCYTES % (AUTO) 8.1 % (2.0-12.0); NEUTROPHILS # (AUTO) 8.2 K/uL (1.8-8.9); NEUTROPHILS % (AUTO) 80.8 % (43.0-81.0); PLATELET COUNT (AUTO) 563 K/uL (150-450); RED BLOOD CELL COUNT(AUTO) 2.94 MIL/uL (4.0-5.2); WHITE BLOOD COUNT (AUTO) 10.1 K/uL (4.3-11.0)
[2022-07-31] MEDS: ENOXAPARIN SODIUM 40 MG/0.4 ML DISP.SYRIN SQ SCH (09:00)
[2022-07-31 09:18] LABS: CALCIUM, SERUM 8.9 mg/dL (8.5-10.1); CREATININE 0.7 mg/dL (0.6-1.3); MAGNESIUM 2.2 mg/dL (1.8-2.4); PHOSPHORUS 3.7 mg/dL (2.5-4.9); POTASSIUM 4.4 mmol/L (3.5-5.1)
[2022-07-31] MEDS: LEVOTHYROXINE SODIUM 50 MCG TABLET PO SCH (09:32)
[2022-07-31] MEDS: METOCLOPRAMIDE HCL 10 MG TABLET PO SCH ×3 (09:33→16:59)
[2022-07-31] MEDS: MELOXICAM 7.5 MG TABLET PO SCH (09:33)
[2022-07-31] MEDS: PANTOPRAZOLE 40 MG TABLET.DR PO SCH (09:34)
[2022-07-31] MEDS: AMLODIPINE BESYLATE 10 MG TABLET PO SCH (09:34)
[2022-07-31] MEDS: LISINOPRIL (10MG) 10 MG TABLET PO SCH (09:34)
[2022-07-31] MEDS: ASPIRIN EC 81 MG TABLET.DR PO SCH (09:34)
[2022-07-31] MEDS: PROPRANOLOL HCL 10 MG TABLET PO SCH ×2 (09:34→16:58)
[2022-07-31] MEDS: GLUCERNA SHAKE 237 ML CAN PO SCH ×2 (09:35→16:59)
[2022-07-31] MEDS: SERTRALINE HCL 50 MG TABLET PO SCH (09:35)
[2022-07-31 16:00] VITALS: BP 122/68
[2022-07-31] MEDS: MIRTAZAPINE 15 MG TABLET PO SCH (17:00)
--- NOTE | 2022-07-31 19:02 | NUR ---
RN CLOSING NOTE PATIENT RECEIVED IN BED AND AWAKE. A/OX3-4 AND ABLE TO VERBALIZE ALL NEEDS. IV ACCESS CHANGED TO LAC 18G. REMAINS INTACT AND PATENT AT THIS TIME. IV FLUIDS D/CD @ THIS TIME PER DOCTOR ORDER. LOVENOX HELD DUE TO DECREASED Hgb 7.1 AND HH 22. CHARGE NURSE AND PHYSICIAN MADE AWARE. PATIENT HAD NO C/O BODY PAIN THROUGHOUT SHIFT, NO PRN REQUIRED. CONTINUES TO AMBULATE WELL WITH STANDBY ASSIST. BEDSIDE COMMODE PLACED AT BEDSIDE FOR PATIENT COMFORT. TOLERATED ALL MEALS AND OTHER MEDICATIONS WELL. VITAL SIGNS STABLE ON SHIFT. SAFETY MEASURES IN PLACE WITH BED LOW AND LOCKED. SIDE RAIL UP AND CALL LIGHT WITHIN REACH. WILL CONT TO MONITOR.
--- NOTE | 2022-07-31 19:54 | NUR ---
maximino rn opening received patient in bed, a/ox3-4 no s/s of apparent distress on room air. denies pain at this time. patient's sister Cathleen at bed side with the patient. sumeet #18g intact-- no fluids running at this time. re-oriented and encouraged with the use of call light, call light within reach. needs attended for now. safety in place. will cont. with patient's plan of care.
[2022-07-31 20:00] VITALS: BP 110/61
[2022-07-31] MEDS: ATORVASTATIN 10 MG TABLET PO SCH (21:51)
[2022-07-31] MEDS: DONEPEZIL 5 MG TABLET PO SCH (21:51)
--- NOTE | 2022-08-01 06:32 | NUR ---
noc rn closing note patient in bed, a/ox3-4 with periods of confusion. no s/s of apparent distress on room air. pain managed with medication. patient ambulates with weak gait and assistance. rt. wrist #22 g on saline lock. all needs attended. all scheduled medications administered. call light within reach. will endorse to morning shift rn for continuity of patient care.
--- NOTE | 2022-08-01 07:10 | NUR ---
MS RN OPENING NOTES: Received pt in bed asleep easily aroused with stimuli, alert and oriented x 3 with episodes of confusion. No SOB or cardiac distress noted, afebrile. Iv access on LAC g!8 patent, intact and saline locked. Kept rested and comfortable. Maintained Safety measures: bed locked and in lowest position, side rails up x 2. call light in easy reach for help. will monitor accordingly.
[2022-08-01] MEDS: LEVOTHYROXINE SODIUM 50 MCG TABLET PO SCH (07:32)
[2022-08-01] MEDS: PANTOPRAZOLE 40 MG TABLET.DR PO SCH (07:32)
[2022-08-01] MEDS: METOCLOPRAMIDE HCL 10 MG TABLET PO SCH ×3 (07:33→16:49)
[2022-08-01] MEDS: GLUCERNA SHAKE 237 ML CAN PO SCH ×2 (07:47→17:00)
--- NOTE | 2022-08-01 07:50 | NUR ---
PAMPHLET DISTRIBUTOR NOTES: PT DC TO [facility] ROOM [facility]B, REPORT GIVEN TO RADHA RECINOS. PT ACCOMPANIED BY SISTER CORTEZ AND 2 PARAMEDICS VIA GURNEY. PT ALERT AND ORIENTED X 3 AND ABLE TO VERBALIZED NEEDS, DISCHARGE INSTRUCTIONS GIVEN TO RADHA RECINOS, PACKET GIVEN TO PARAMEDICS AND INFORMED CORTEZ THE SISTER. NO BELONGINGS TAKEN, CORTEZ SIGNED ALL THE FORMS. REMOVED IV ACCESS. NO SOB OR CARDIAC DISTRESS NOTED, LUNGS CLEARED ALL THROUGH OUT. ABDOMEN SOFT. KEPT IDENTIFICATION BAND IN PLACE. PT LEFT THE UNIT STABLE.
[2022-08-01 08:16] VITALS: BP 138/68
[2022-08-01] MEDS: MELOXICAM 7.5 MG TABLET PO SCH (08:37)
[2022-08-01] MEDS: ASPIRIN EC 81 MG TABLET.DR PO SCH (08:37)
[2022-08-01] MEDS: SERTRALINE HCL 50 MG TABLET PO SCH (08:38)
[2022-08-01] MEDS: LISINOPRIL (10MG) 10 MG TABLET PO SCH (08:38)
[2022-08-01] MEDS: PROPRANOLOL HCL 10 MG TABLET PO SCH ×2 (08:38→16:49)
[2022-08-01] MEDS: AMLODIPINE BESYLATE 10 MG TABLET PO SCH (08:39)
[2022-08-01] MEDS: ENOXAPARIN SODIUM 40 MG/0.4 ML DISP.SYRIN SQ SCH (08:45)
[2022-08-01 15:42] VITALS: BP 102/54
[2022-08-01 16:49] VITALS: BP 130/75
== END 2022-08-01 17:52 | DRG 640 ==
LOC: ER 12:07 → MED 18:39
PROVIDERS: ADMIT Nurse Practitioner Acute Care; ATTEND Nurse Practitioner Acute Care
DX: R62.7 Adult failure to thrive (principal); E43 Unspecified severe protein-calorie malnutrition; E87.1 Hypo-osmolality and hyponatremia; F03.94 Unspecified dementia, unspecified severity, with anxiety; F03.92 Unspecified dementia, unspecified severity, with psychotic disturbance; Z68.1 Body mass index [BMI] 19.9 or less, adult; F29 Unspecified psychosis not due to a substance or known physiological condition; D45 Polycythemia vera; E11.9 Type 2 diabetes mellitus without complications; I10 Essential (primary) hypertension; K21.9 Gastro-esophageal reflux disease without esophagitis; M19.90 Unspecified osteoarthritis, unspecified site; E78.5 Hyperlipidemia, unspecified; Z79.84 Long term (current) use of oral hypoglycemic drugs; Z79.82 Long term (current) use of aspirin; Z79.899 Other long term (current) drug therapy; D63.8 Anemia in other chronic diseases classified elsewhere; D75.839 Thrombocytosis, unspecified; F32.9 Major depressive disorder, single episode, unspecified; F17.200 Nicotine dependence, unspecified, uncomplicated; Z85.118 Personal history of other malignant neoplasm of bronchus and lung; E88.09 Other disorders of plasma-protein metabolism, not elsewhere classified; E03.9 Hypothyroidism, unspecified
CPT/HCPCS: 36415; 71045-TC; 80048-TC; 80053-TC; 80061-TC; 80076-TC; 83735-TC; 84100-TC; 84443-TC; 84484-TC; 85025-TC; 87081-TC; 93307-TC; 97112-TC; 97116-TC; 97530-TC; C9803; G0378; J1650; J7042; J7120; J8597

== ENCOUNTER 2023-09-18 15:06 | Inpatient (IN) | payer MEDICARE ==
[~2023-09-18] VITALS: Ht 162.6 cm; Wt 50.8 kg
[~2023-09-18 15:06] MED LIST changes: +AMLO-213 PO; -ANAG0.5C3 PO; -CLON1TAB PO; +DONE5TAB34 PO; +LEVO50TA8 PO; +LISI10TA29 PO; +METF-440 PO; +METO5TAB2 PO; +MIRT-90 PO; -OMEP40CA21 PO; +PROP10TA68 PO; +SERT100T12 PO
[2023-09-18] MEDS ORDERED: ALBUTEROL FS 2.5 MG/3 ML VIAL.NEB ONE (15:45)
[2023-09-18 15:57] VITALS: O2SAT 97
[2023-09-18] MEDS ORDERED: methylPREDNISolone SOD SUCC 125 MG/2ML VIAL ONE (15:59)
[2023-09-18] MEDS ORDERED: ALBUTEROL FS 2.5 MG/3 ML VIAL.NEB NEB ONE (16:00)
[2023-09-18] MEDS ORDERED: methylPREDNISolone SOD SUCC 125 MG/2ML VIAL IV ONE (16:00)
[2023-09-18] MEDS ORDERED: IPRATROPIUM NEB FS 0.5 MG/2.5 ML AMPUL.NEB NEB ONE (16:00)
[2023-09-18 16:12] VITALS: O2SAT 99
[2023-09-18 16:20] LABS: ABG BASE EXCESS -2.7 mmol/L; ABG OXYGEN SATURATION 96.5 % (92.0-98.5); ABG PCO2 27.5 mmHg (35.0-45.0); ABG PH 7.477 (7.350-7.450); ABG PO2 83.9 mmHg (75.0-100.0); ABG TOTAL HEMOGLOBIN 10.4 G/dL (12.0-16.0); COHb 0.3 % (0.5-1.5); MetHb 0.1 % (0.0-1.5); O2Hb 96.1 % (94.0-97.0); SITE, ABG Left Radial
[2023-09-18 16:23] LABS: BASOPHILS # (AUTO) 0.1 K/uL (0.0-0.2); BASOPHILS % (AUTO) 0.6 % (0.0-2.0); EOSINOPHILS # (AUTO) 0.4 K/uL (0.0-0.7); HEMATOCRIT 31 % (33-45); LYMPHOCYTES # (AUTO) 1.9 K/uL (0.8-4.8); LYMPHOCYTES % (AUTO) 9.1 % (20.0-44.0); MEAN CORPUSCULAR HEMOGLOBIN 18 PG (26.0-33.0); MEAN CORPUSCULAR HGB CONC 29 g/dl (31.0-36.0); MEAN CORPUSCULAR VOLUME 62 fL (82-100); MONOCYTES # (AUTO) 0.8 K/uL (0.1-1.30); NEUTROPHILS # (AUTO) 17.8 K/uL (1.8-8.9); NEUTROPHILS % (AUTO) 84.3 % (43.0-81.0); RED BLOOD CELL COUNT(AUTO) 4.98 MIL/uL (4.0-5.2); RED CELL DISTRIBUTION WIDTH 22.4 % (11.5-15.0); WHITE BLOOD COUNT (AUTO) 21.1 K/uL (4.3-11.0)
[2023-09-18 16:32] LABS: CALCIUM, SERUM 9.5 mg/dL (8.5-10.1); CARBON DIOXIDE 22 mmol/L (21-32); CHLORIDE 92 mmol/L (98-107); CREATININE 0.8 mg/dL (0.6-1.3); GLUCOSE 224 mg/dL (74-106); POTASSIUM 3.9 mmol/L (3.5-5.1); SODIUM SERUM 126 mmol/L (136-145); UREA NITROGEN, BLOOD 14 mg/dL (7-18)
[2023-09-18 16:35] LABS: PLATELET COUNT (AUTO) 1095 K/uL (150-450)
[2023-09-18 16:38] LABS: ALANINE AMINOTRANSFERASE 16 U/L (12-78); ALBUMIN 3.1 g/dL (3.4-5.0); ALKALINE PHOSPHATASE 86 U/L (46-116); ASPARTATE AMINOTRANSFERASE 18 U/L (15-37); BILIRUBIN,DIRECT 0.2 mg/dL (0.0-0.2); BILIRUBIN,TOTAL 0.4 mg/dL (0.2-1.0); TOTAL PROTEIN, SERUM 8.6 g/dL (6.4-8.2)
[2023-09-18 16:57] LABS: LACTIC ACID 2.3 mmol/L (0.4-2.0)
[2023-09-18] MEDS ORDERED: CLON1TAB12 PO (17:24)
[2023-09-18] MEDS ORDERED: MEGE400O4 PO (17:24)
[2023-09-18] MEDS ORDERED: VITA1TAB56 PO (17:24)
[2023-09-18] MEDS ORDERED: HYDR500C2 PO (17:24)
[2023-09-18 17:29] LABS: EOSINOPHILS % (MANUAL) 1 % (0-4); LYMPHOCYTES % (MANUAL) 9 % (16-48); MONOCYTES % (MANUAL) 3 % (0-11.0); NEUTROPHILS % (MANUAL) 87 (42-76); PLATELET ESTIMATE INCREASED
[2023-09-18 17:30] LABS: ANISOCYTOSIS 1+; HYPOCHROMASIA 1+; ROULEAUX 1+
[2023-09-18] MEDS ORDERED: CEFTRIAXONE 1GM BAG (ER ONLY) 50 ML IV ONE (17:30)
[2023-09-18] MEDS ORDERED: IV NS 0.9% 1,000 ML BAG IV ONE (17:30)
[2023-09-18] MEDS ORDERED: VANCOMYCIN 1 GM in IV D5W 250 ML IV ONE (17:30)
[2023-09-18] MEDS ORDERED: IOHEXOL-350 100 ML VIAL IV ONE (20:17)
[2023-09-18] MEDS ORDERED: CT SWABBABLE VALVE TRANS SET 1 EA INFUS.SET MC ONE (20:17)
[2023-09-18 21:33] LABS: APPEARANCE,URINE CLEAR (CLEAR); BILIRUBIN,URINE NEGATIVE (NEGATIVE); BLOOD, URINE NEGATIVE Ery/uL (NEGATIVE); COLOR,URINE YELLOW (YELLOW); KETONES,URINE TRACE mg/dL (NEGATIVE); LEUKOCYTE ESTERASE ,URINE NEGATIVE (NEGATIVE); NITRITE, URINE NEGATIVE (NEGATIVE); PROTEIN,URINE NEGATIVE (NEGATIVE); UGLUCOSE 2+ mg/dL (NEGATIVE); UROBILINOGEN,URINE 0.2 EU/dL (0.2)
[2023-09-18 21:45] VITALS: BP 137/78; TEMP 98.6; O2SAT 97
[2023-09-18 22:19] LABS: ADD URINE CULTURE NO; BACTERIA,URINE None seen /HPF (None Seen); RBC,URINE 0-2 /HPF (0-2); URINE AMORPHOUS URATE Many /HPF (None Seen); WBC,URINE 0-2 /HPF (0-3)
[2023-09-19] VITALS: BP 121/60; TEMP 99.7; O2SAT 99
[2023-09-19] MEDS ORDERED: ONDANSETRON HCL/PF 4 MG/2 ML VIAL IVP PRN (00:30)
[2023-09-19] MEDS ORDERED: ACETAMINOPHEN 325 MG TABLET PO PRN (00:30)
[2023-09-19] MEDS ORDERED: clonazePAM 1 MG TABLET PO PRN (00:30)
[2023-09-19] MEDS ORDERED: ZOLPIDEM TARTRATE 5 MG TABLET PO PRN (00:30)
[2023-09-19] MEDS ORDERED: MAGNESIUM HYDROXIDE 30 ML UDC PO PRN (00:30)
[2023-09-19] MEDS ORDERED: NAPROXEN 500 MG TABLET PO PRN (00:30)
[2023-09-19] MEDS ORDERED: Z GUARD REMEDY 4 OZ OINT TP PRN (00:30)
[2023-09-19] MEDS ORDERED: MAG HYDROX/AL HYDROX/SIMETH 30 ML UDC PO PRN (00:30)
[2023-09-19] MEDS: IV NS 0.9% 1,000 ML IV PRN (00:56)
[2023-09-19] MEDS: ENOXAPARIN SODIUM 40 MG/0.4 ML DISP.SYRIN SQ SCH ×2 (00:56→20:57)
[2023-09-19 05:00] VITALS: BP 145/70; TEMP 99.1; O2SAT 99
[2023-09-19] MEDS: LEVOTHYROXINE SODIUM 50 MCG TABLET PO SCH (06:37)
[2023-09-19] MEDS: HYDROXYUREA 500 MG CAPSULE PO SCH ×3 (06:37→20:55)
[2023-09-19 07:57] LABS: BASOPHILS % (AUTO) 0.2 % (0.0-2.0); HEMATOCRIT 28 % (33-45); HEMOGLOBIN 8.4 g/dL (11.5-14.8); LYMPHOCYTES # (AUTO) 1.3 K/uL (0.8-4.8); LYMPHOCYTES % (AUTO) 5.8 % (20.0-44.0); MEAN CORPUSCULAR HEMOGLOBIN 19 PG (26.0-33.0); MEAN CORPUSCULAR HGB CONC 30 g/dl (31.0-36.0); MEAN CORPUSCULAR VOLUME 61 fL (82-100); MONOCYTES # (AUTO) 0.5 K/uL (0.1-1.30); NEUTROPHILS # (AUTO) 21.2 K/uL (1.8-8.9); RED BLOOD CELL COUNT(AUTO) 4.52 MIL/uL (4.0-5.2); RED CELL DISTRIBUTION WIDTH 22.2 % (11.5-15.0)
[2023-09-19 08:00] VITALS: BP 138/71; TEMP 99.3; O2SAT 96
[2023-09-19 08:14] LABS: PLATELET COUNT (AUTO) 1117 K/uL (150-450)
[2023-09-19 08:24] LABS: CALCIUM, SERUM 9.4 mg/dL (8.5-10.1); CREATININE 0.7 mg/dL (0.6-1.3); MAGNESIUM 2.1 mg/dL (1.8-2.4); PHOSPHORUS 2.5 mg/dL (2.5-4.9); POTASSIUM 4.1 mmol/L (3.5-5.1)
[2023-09-19] MEDS: MEGESTROL ACETATE SUSP 400 MG/10 ML UDC PO SCH (08:43)
[2023-09-19] MEDS: VITAMIN B COMP W-C 1 TAB TABLET PO SCH (08:43)
[2023-09-19] MEDS: ASPIRIN EC 81 MG TABLET.DR PO SCH (08:44)
[2023-09-19] MEDS: PROPRANOLOL HCL 10 MG TABLET PO SCH ×2 (08:44→21:01)
[2023-09-19] MEDS ORDERED: PANTOPRAZOLE 40 MG VIAL IV SCH (09:00)
[2023-09-19 11:24] LABS: ANISOCYTOSIS 1+; BASOPHILS % (MANUAL) 0 % (0.0-2.0); EOSINOPHILS % (MANUAL) 1 % (0-4); HYPOCHROMASIA 1+; LYMPHOCYTES % (MANUAL) 6 % (16-48); MONOCYTES % (MANUAL) 4 % (0-11.0); NEUTROPHILS % (MANUAL) 89 (42-76); PLATELET ESTIMATE INCREASED
[2023-09-19 12:00] VITALS: BP 137/76; TEMP 97.7; O2SAT 97
[2023-09-19] MEDS ORDERED: HYDROXYUREA 500 MG CAPSULE PO SCH (14:00)
[2023-09-19] MEDS: ALLOPURINOL 100 MG TABLET PO SCH (14:18)
[2023-09-19 14:52] LABS: HEMOGLOBIN 8.1 g/dL (11.5-14.8)
[2023-09-19 16:00] VITALS: BP 130/63; TEMP 97.5; O2SAT 95
[2023-09-19 16:24] LABS: URIC ACID 3.6 mg/dL (2.6-7.2)
[2023-09-19] MEDS: AMLODIPINE BESYLATE 10 MG TABLET PO SCH (17:04)
[2023-09-19] MEDS: DONEPEZIL 5 MG TABLET PO SCH (17:04)
[2023-09-19] MEDS: SERTRALINE HCL 50 MG TABLET PO SCH (17:04)
[2023-09-19] MEDS: CEFTRIAXONE 1 G in IV D5W 50 ML IV SCH (17:46)
[2023-09-19 20:00] VITALS: BP 133/68; TEMP 98.7; O2SAT 96
[2023-09-20] VITALS: BP 136/65; TEMP 98.8; O2SAT 96
[2023-09-20] MEDS ORDERED: JEVITY 1.2 CAL 1,000 ML BOTTLE GT PRN (00:30)
[2023-09-20] MEDS: IV NS 0.9% 1,000 ML IV PRN ×2 (03:33→19:59)
[2023-09-20 04:00] VITALS: BP 131/84; TEMP 98.2; O2SAT 99
[2023-09-20 07:25] LABS: CREATININE 0.6 mg/dL (0.6-1.3); PHOSPHORUS 2.5 mg/dL (2.5-4.9); POTASSIUM 3.7 mmol/L (3.5-5.1)
[2023-09-20 07:37] LABS: PHOSPHORUS 2.5 mg/dL (2.5-4.9)
[2023-09-20 07:43] LABS: THYROID STIMULATING HORMONE 3.071 uIU/mL (0.358-3.74); URIC ACID 3.3 mg/dL (2.6-7.2)
[2023-09-20 07:57] LABS: BASOPHILS # (AUTO) 0.1 K/uL (0.0-0.2); BASOPHILS % (AUTO) 0.6 % (0.0-2.0); EOSINOPHILS # (AUTO) 0.2 K/uL (0.0-0.7); EOSINOPHILS % (AUTO) 0.9 % (0.0-6.0); HEMATOCRIT 31 % (33-45); HEMOGLOBIN 9.1 g/dL (11.5-14.8); LYMPHOCYTES # (AUTO) 2.5 K/uL (0.8-4.8); MEAN CORPUSCULAR HEMOGLOBIN 18 PG (26.0-33.0); MEAN CORPUSCULAR HGB CONC 30 g/dl (31.0-36.0); MEAN CORPUSCULAR VOLUME 62 fL (82-100); MONOCYTES # (AUTO) 0.8 K/uL (0.1-1.30); MONOCYTES % (AUTO) 3.3 % (2.0-12.0); NEUTROPHILS # (AUTO) 19.5 K/uL (1.8-8.9); NEUTROPHILS % (AUTO) 84.2 % (43.0-81.0); RED BLOOD CELL COUNT(AUTO) 4.93 MIL/uL (4.0-5.2); RED CELL DISTRIBUTION WIDTH 22.9 % (11.5-15.0); WHITE BLOOD COUNT (AUTO) 23.1 K/uL (4.3-11.0)
[2023-09-20 08:00] VITALS: BP 151/88; TEMP 98.8; O2SAT 99
[2023-09-20 08:13] LABS: PLATELET COUNT (AUTO) 1170 K/uL (150-450)
[2023-09-20] MEDS: LEVOTHYROXINE SODIUM 50 MCG TABLET PO SCH (08:54)
[2023-09-20] MEDS: HYDROXYUREA 500 MG CAPSULE PO SCH ×2 (08:54→18:20)
[2023-09-20] MEDS: ASPIRIN EC 81 MG TABLET.DR PO SCH (08:54)
[2023-09-20] MEDS: MEGESTROL ACETATE SUSP 400 MG/10 ML UDC PO SCH (08:55)
[2023-09-20] MEDS: PROPRANOLOL HCL 10 MG TABLET PO SCH ×2 (08:55→20:33)
[2023-09-20] MEDS: VITAMIN B COMP W-C 1 TAB TABLET PO SCH (08:55)
[2023-09-20] MEDS: PANTOPRAZOLE 40 MG TABLET.DR PO SCH (08:55)
[2023-09-20] MEDS: ALLOPURINOL 100 MG TABLET PO SCH (08:55)
[2023-09-20 10:10] LABS: IMMUNOGLOBULIN A, SERUM 566 mg/dL (64-422); IMMUNOGLOBULIN G, SERUM 2033 mg/dL (586-1602); IMMUNOGLOBULIN M, SERUM 159 mg/dL (26-217)
[2023-09-20 12:00] VITALS: BP 141/68; TEMP 98.8; O2SAT 98
[2023-09-20] MEDS ORDERED: ALBUTEROL FS 2.5 MG/0.5 ML VIAL.NEB NEB PRN (13:30)
[2023-09-20] MEDS ORDERED: IPRATROPIUM NEB FS 0.5 MG/2.5 ML AMPUL.NEB NEB PRN (13:30)
[2023-09-20] MEDS ORDERED: methylPREDNISolone SOD SUCC 125 MG/2ML VIAL IV SCH (13:30)
[2023-09-20 16:00] VITALS: BP 126/72; TEMP 98.6; O2SAT 99
[2023-09-20 17:15] LABS: HEMOGLOBIN 9.4 g/dL (11.5-14.8)
[2023-09-20] MEDS: SERTRALINE HCL 50 MG TABLET PO SCH (17:32)
[2023-09-20] MEDS: AMLODIPINE BESYLATE 10 MG TABLET PO SCH (18:20)
[2023-09-20] MEDS: DONEPEZIL 5 MG TABLET PO SCH (18:20)
[2023-09-20] MEDS: CEFTRIAXONE 1 G in IV D5W 50 ML IV SCH (18:20)
[2023-09-20 19:53] LABS: ANISOCYTOSIS 1+; EOSINOPHILS % (MANUAL) 1 % (0-4); HYPOCHROMASIA 1+; LYMPHOCYTES % (MANUAL) 7 % (16-48); MONOCYTES % (MANUAL) 3 % (0-11.0); NEUTROPHILS % (MANUAL) 89 (42-76); PLATELET ESTIMATE INCREASED; TARGET CELLS 1+
[2023-09-20 19:54] LABS: OVALOCYTES 1+
[2023-09-20 20:00] VITALS: BP 128/72; TEMP 98.1; O2SAT 99
[2023-09-20] MEDS: ENOXAPARIN SODIUM 40 MG/0.4 ML DISP.SYRIN SQ SCH (20:35)
[2023-09-20 21:21] LABS: OCCULT BLOOD STOOL NEGATIVE (NEGATIVE)
[2023-09-21] VITALS: BP 140/74; TEMP 98.8; O2SAT 99
[2023-09-21 01:06] LABS: FOLIC ACID > 20.0 ng/mL (>3.0)
[2023-09-21 04:00] VITALS: BP 133/71; TEMP 98.3; O2SAT 99
[2023-09-21 05:47] LABS: BASOPHILS % (AUTO) 0.1 % (0.0-2.0); HEMATOCRIT 29 % (33-45); HEMOGLOBIN 8.6 g/dL (11.5-14.8); LYMPHOCYTES # (AUTO) 1.3 K/uL (0.8-4.8); LYMPHOCYTES % (AUTO) 6.7 % (20.0-44.0); MEAN CORPUSCULAR HEMOGLOBIN 18 PG (26.0-33.0); MEAN CORPUSCULAR HGB CONC 29 g/dl (31.0-36.0); MEAN CORPUSCULAR VOLUME 62 fL (82-100); MONOCYTES # (AUTO) 0.5 K/uL (0.1-1.30); MONOCYTES % (AUTO) 2.3 % (2.0-12.0); NEUTROPHILS % (AUTO) 90.9 % (43.0-81.0); RED BLOOD CELL COUNT(AUTO) 4.73 MIL/uL (4.0-5.2); RED CELL DISTRIBUTION WIDTH 22.4 % (11.5-15.0); WHITE BLOOD COUNT (AUTO) 19.8 K/uL (4.3-11.0)
[2023-09-21 06:06] LABS: PLATELET COUNT (AUTO) 1067 K/uL (150-450)
[2023-09-21 06:07] LABS: CARBON DIOXIDE 23 mmol/L (21-32); CHLORIDE 100 mmol/L (98-107); CREATININE 0.5 mg/dL (0.6-1.3); GLUCOSE 217 mg/dL (74-106); MAGNESIUM 2.1 mg/dL (1.8-2.4); PHOSPHORUS 2.6 mg/dL (2.5-4.9); POTASSIUM 3.5 mmol/L (3.5-5.1); SODIUM SERUM 132 mmol/L (136-145); UREA NITROGEN, BLOOD 15 mg/dL (7-18)
[2023-09-21] MEDS: LEVOTHYROXINE SODIUM 50 MCG TABLET PO SCH (07:45)
[2023-09-21 08:00] VITALS: BP 132/65; TEMP 98.6; O2SAT 99
[2023-09-21] MEDS: ALLOPURINOL 100 MG TABLET PO SCH (08:34)
[2023-09-21] MEDS: PANTOPRAZOLE 40 MG TABLET.DR PO SCH (08:34)
[2023-09-21] MEDS: PROPRANOLOL HCL 10 MG TABLET PO SCH ×2 (08:35→20:17)
[2023-09-21] MEDS: MEGESTROL ACETATE SUSP 400 MG/10 ML UDC PO SCH (08:36)
[2023-09-21] MEDS: HYDROXYUREA 500 MG CAPSULE PO SCH ×2 (08:36→16:26)
[2023-09-21] MEDS: VITAMIN B COMP W-C 1 TAB TABLET PO SCH (08:36)
[2023-09-21] MEDS: ASPIRIN EC 81 MG TABLET.DR PO SCH (08:39)
[2023-09-21 09:11] LABS: *SPE A/G RATIO 0.6 (0.7-1.7); *SPE ALBUMIN 2.9 g/dL (2.9-4.4); *SPE ALPHA-1-GLOBULIN 0.4 g/dL (0.0-0.4); *SPE BETA GLOBULIN 1.3 g/dL (0.7-1.3); *SPE GLOBULIN, TOTAL 4.6 g/dL (2.2-3.9); *SPE M-SPIKE Not Observed g/dL (Not Observed); *SPE PROTEIN TOTAL 7.5 g/dL (6.0-8.5); *SPEGAMMA GLOBULIN 1.9 g/dL (0.4-1.8)
[2023-09-21 09:51] LABS: ANISOCYTOSIS 1+; BAND % (MANUAL) 2 % (0.0-5.0); BASOPHILS % (MANUAL) 0 % (0.0-2.0); EOSINOPHILS % (MANUAL) 0 % (0-4); HYPOCHROMASIA 1+; LYMPHOCYTES % (MANUAL) 9 % (16-48); MONOCYTES % (MANUAL) 5 % (0-11.0); NEUTROPHILS % (MANUAL) 84 (42-76); OVALOCYTES 1+; PLATELET ESTIMATE INCREASED; TARGET CELLS 1+
[2023-09-21 12:00] VITALS: BP 120/57; TEMP 98.6; O2SAT 96
[2023-09-21 16:00] VITALS: BP 140/71; TEMP 99.1; O2SAT 98
[2023-09-21] MEDS: GLUCERNA SHAKE 237 ML CAN PO SCH (16:27)
[2023-09-21 16:35] LABS: HEMOGLOBIN 9.1 g/dL (11.5-14.8)
[2023-09-21] MEDS: AMLODIPINE BESYLATE 10 MG TABLET PO SCH (17:26)
[2023-09-21] MEDS: CEFTRIAXONE 1 G in IV D5W 50 ML IV SCH (17:27)
[2023-09-21] MEDS: DONEPEZIL 5 MG TABLET PO SCH (17:27)
[2023-09-21] MEDS: SERTRALINE HCL 50 MG TABLET PO SCH (17:27)
[2023-09-21 20:00] VITALS: BP 136/66; TEMP 98.8; O2SAT 99
[2023-09-21] MEDS: ENOXAPARIN SODIUM 40 MG/0.4 ML DISP.SYRIN SQ SCH (20:18)
[2023-09-22] VITALS: BP 132/66; TEMP 98.8; O2SAT 98
[2023-09-22 04:00] VITALS: BP 159/76; TEMP 98.4; O2SAT 99
[2023-09-22 05:51] LABS: BASOPHILS % (AUTO) 0.3 % (0.0-2.0); EOSINOPHILS # (AUTO) 0.3 K/uL (0.0-0.7); EOSINOPHILS % (AUTO) 1.8 % (0.0-6.0); HEMATOCRIT 30 % (33-45); HEMOGLOBIN 8.9 g/dL (11.5-14.8); LYMPHOCYTES # (AUTO) 2.1 K/uL (0.8-4.8); MEAN CORPUSCULAR HEMOGLOBIN 19 PG (26.0-33.0); MEAN CORPUSCULAR HGB CONC 30 g/dl (31.0-36.0); MEAN CORPUSCULAR VOLUME 62 fL (82-100); MONOCYTES # (AUTO) 0.2 K/uL (0.1-1.30); MONOCYTES % (AUTO) 1.5 % (2.0-12.0); NEUTROPHILS # (AUTO) 12.6 K/uL (1.8-8.9); NEUTROPHILS % (AUTO) 82.4 % (43.0-81.0); RED BLOOD CELL COUNT(AUTO) 4.83 MIL/uL (4.0-5.2); RED CELL DISTRIBUTION WIDTH 22.8 % (11.5-15.0); WHITE BLOOD COUNT (AUTO) 15.3 K/uL (4.3-11.0)
[2023-09-22 06:09] LABS: ALANINE AMINOTRANSFERASE 25 U/L (12-78); ALBUMIN 2.6 g/dL (3.4-5.0); ALKALINE PHOSPHATASE 79 U/L (46-116); ASPARTATE AMINOTRANSFERASE 21 U/L (15-37); BILIRUBIN,TOTAL 0.3 mg/dL (0.2-1.0); CALCIUM, SERUM 8.9 mg/dL (8.5-10.1); CARBON DIOXIDE 23 mmol/L (21-32); CHLORIDE 100 mmol/L (98-107); CREATININE 0.6 mg/dL (0.6-1.3); GLUCOSE 163 mg/dL (74-106); MAGNESIUM 1.9 mg/dL (1.8-2.4); PHOSPHORUS 2.5 mg/dL (2.5-4.9); POTASSIUM 3.4 mmol/L (3.5-5.1); SODIUM SERUM 132 mmol/L (136-145); TOTAL PROTEIN, SERUM 7.6 g/dL (6.4-8.2); UREA NITROGEN, BLOOD 16 mg/dL (7-18)
[2023-09-22 06:10] LABS: URIC ACID 2.6 mg/dL (2.6-7.2)
[2023-09-22 06:37] LABS: PLATELET COUNT (AUTO) 1142 K/uL (150-450)
[2023-09-22 08:00] VITALS: BP 132/72; TEMP 98.3; O2SAT 99
[2023-09-22] MEDS: PANTOPRAZOLE 40 MG TABLET.DR PO SCH (08:28)
[2023-09-22] MEDS: HYDROXYUREA 500 MG CAPSULE PO SCH ×2 (08:28→17:40)
[2023-09-22] MEDS: ALLOPURINOL 100 MG TABLET PO SCH (08:28)
[2023-09-22] MEDS: MEGESTROL ACETATE SUSP 400 MG/10 ML UDC PO SCH (08:28)
[2023-09-22] MEDS: VITAMIN B COMP W-C 1 TAB TABLET PO SCH (08:28)
[2023-09-22] MEDS: LEVOTHYROXINE SODIUM 50 MCG TABLET PO SCH (08:28)
[2023-09-22] MEDS: ASPIRIN EC 81 MG TABLET.DR PO SCH (08:29)
[2023-09-22] MEDS: PROPRANOLOL HCL 10 MG TABLET PO SCH ×2 (08:29→21:05)
[2023-09-22] MEDS: GLUCERNA SHAKE 237 ML CAN PO SCH ×2 (08:30→17:38)
[2023-09-22] MEDS ORDERED: DEXTROSE 50%-WATER 50 ML DISP.SYRIN IV PRN (08:30)
[2023-09-22] MEDS: BLOOD SUGAR DIAGNOSTIC 1 EACH STRIP VI SCH ×4 (08:36→21:31)
[2023-09-22] MEDS: *INSULIN REGULAR(HUMULIN R)HUM 100 UNIT/ML VIAL SQ PRN ×4 (09:21→21:31)
[2023-09-22] MEDS ORDERED: POTASSIUM CHLORIDE 20 MEQ TAB.PRT.SR PO SCH (10:30)
[2023-09-22 12:00] VITALS: BP_SYST 120; BP_SYST 96; BP_DIAS 56; BP_DIAS 58; TEMP 98.1; TEMP 98.2; O2SAT 99
[2023-09-22 13:20] LABS: ANISOCYTOSIS 1+; BASOPHILS % (MANUAL) 0 % (0.0-2.0); EOSINOPHILS % (MANUAL) 2 % (0-4); HYPOCHROMASIA 1+; LYMPHOCYTES % (MANUAL) 10 % (16-48); MONOCYTES % (MANUAL) 2 % (0-11.0); NEUTROPHILS % (MANUAL) 86 (42-76); PLATELET ESTIMATE INCREASED
[2023-09-22 13:21] LABS: OVALOCYTES 1+
[2023-09-22 16:00] VITALS: BP 93/48; TEMP 97.9; O2SAT 99
[2023-09-22] MEDS: SOD FERRIC GLUC 125 MG in IV NS 0.9% 100 ML IV SCH (16:17)
[2023-09-22] MEDS: CEFTRIAXONE 1 G in IV D5W 50 ML IV SCH (17:39)
[2023-09-22] MEDS: SERTRALINE HCL 50 MG TABLET PO SCH (17:39)
[2023-09-22] MEDS: AMLODIPINE BESYLATE 10 MG TABLET PO SCH (17:41)
[2023-09-22] MEDS: DONEPEZIL 5 MG TABLET PO SCH (17:41)
[2023-09-22 20:00] VITALS: BP 133/55; TEMP 98.8; O2SAT 98
[2023-09-22] MEDS: ENOXAPARIN SODIUM 40 MG/0.4 ML DISP.SYRIN SQ SCH (21:06)
[2023-09-23] VITALS: BP 125/61; TEMP 98.8; O2SAT 96
[2023-09-23 04:00] VITALS: BP 113/61; TEMP 99.5; O2SAT 97
[2023-09-23 05:58] LABS: BASOPHILS # (AUTO) 0.1 K/uL (0.0-0.2); BASOPHILS % (AUTO) 0.4 % (0.0-2.0); EOSINOPHILS # (AUTO) 0.4 K/uL (0.0-0.7); EOSINOPHILS % (AUTO) 2.8 % (0.0-6.0); HEMATOCRIT 29 % (33-45); LYMPHOCYTES # (AUTO) 1.9 K/uL (0.8-4.8); LYMPHOCYTES % (AUTO) 12.8 % (20.0-44.0); MEAN CORPUSCULAR HEMOGLOBIN 19 PG (26.0-33.0); MEAN CORPUSCULAR HGB CONC 30 g/dl (31.0-36.0); MEAN CORPUSCULAR VOLUME 62 fL (82-100); MONOCYTES # (AUTO) 0.2 K/uL (0.1-1.30); MONOCYTES % (AUTO) 1.2 % (2.0-12.0); NEUTROPHILS # (AUTO) 12.2 K/uL (1.8-8.9); NEUTROPHILS % (AUTO) 82.8 % (43.0-81.0); RED BLOOD CELL COUNT(AUTO) 4.78 MIL/uL (4.0-5.2); WHITE BLOOD COUNT (AUTO) 14.8 K/uL (4.3-11.0)
[2023-09-23 06:04] LABS: CALCIUM, SERUM 8.7 mg/dL (8.5-10.1); CREATININE 0.6 mg/dL (0.6-1.3); POTASSIUM 3.6 mmol/L (3.5-5.1)
[2023-09-23 06:05] LABS: ALBUMIN 2.7 g/dL (3.4-5.0); BILIRUBIN,TOTAL 0.5 mg/dL (0.2-1.0); PHOSPHORUS 2.7 mg/dL (2.5-4.9); TOTAL PROTEIN, SERUM 7.5 g/dL (6.4-8.2)
[2023-09-23 06:18] LABS: PLATELET COUNT (AUTO) 1059 K/uL (150-450)
[2023-09-23] MEDS: LEVOTHYROXINE SODIUM 50 MCG TABLET PO SCH (07:30)
[2023-09-23 08:00] VITALS: BP 128/72; TEMP 98.8; O2SAT 97
[2023-09-23 08:00] LABS: RHEUMATOID FACTOR SCREEN NEGATIVE (NEGATIVE)
[2023-09-23] MEDS: GLUCERNA SHAKE 237 ML CAN PO SCH ×2 (08:00→17:43)
[2023-09-23] MEDS: BLOOD SUGAR DIAGNOSTIC 1 EACH STRIP VI SCH ×4 (08:35→22:53)
[2023-09-23] MEDS: VITAMIN B COMP W-C 1 TAB TABLET PO SCH (09:00)
[2023-09-23] MEDS: MEGESTROL ACETATE SUSP 400 MG/10 ML UDC PO SCH (09:00)
[2023-09-23] MEDS: PANTOPRAZOLE 40 MG TABLET.DR PO SCH (09:00)
[2023-09-23] MEDS: HYDROXYUREA 500 MG CAPSULE PO SCH ×2 (09:00→17:44)
[2023-09-23] MEDS: PROPRANOLOL HCL 10 MG TABLET PO SCH ×2 (09:00→22:53)
[2023-09-23] MEDS: ALLOPURINOL 100 MG TABLET PO SCH (09:00)
[2023-09-23] MEDS: ASPIRIN EC 81 MG TABLET.DR PO SCH (09:00)
[2023-09-23 11:33] LABS: ANISOCYTOSIS 1+; BASOPHILS % (MANUAL) 0 % (0.0-2.0); EOSINOPHILS % (MANUAL) 2 % (0-4); HYPOCHROMASIA 1+; LYMPHOCYTES % (MANUAL) 9 % (16-48); MONOCYTES % (MANUAL) 4 % (0-11.0); NEUTROPHILS % (MANUAL) 85 (42-76); OVALOCYTES 1+; PLATELET ESTIMATE INCREASED
[2023-09-23 12:00] VITALS: BP 124/73; TEMP 99.8; O2SAT 98
[2023-09-23] MEDS ORDERED: IOHEXOL-300 100 ML VIAL IV ONE (14:02)
[2023-09-23] MEDS ORDERED: IV NS 0.9% 250 ML IV ONE (14:03)
[2023-09-23] MEDS: SOD FERRIC GLUC 125 MG in IV NS 0.9% 100 ML IV SCH (15:20)
[2023-09-23 16:00] VITALS: BP 137/55; TEMP 98.2; O2SAT 98
[2023-09-23] MEDS: CEFTRIAXONE 1 G in IV D5W 50 ML IV SCH (17:44)
[2023-09-23] MEDS: AMLODIPINE BESYLATE 10 MG TABLET PO SCH (17:45)
[2023-09-23] MEDS: SERTRALINE HCL 50 MG TABLET PO SCH (17:45)
[2023-09-23] MEDS: DONEPEZIL 5 MG TABLET PO SCH (17:45)
[2023-09-23] MEDS: INSULIN REGULAR, HUMAN 100 UNIT/ML 3 ML VIAL SQ PRN (17:47)
[2023-09-23 20:00] VITALS: BP 132/65; TEMP 98.1; O2SAT 96
[2023-09-23] MEDS: ENOXAPARIN SODIUM 40 MG/0.4 ML DISP.SYRIN SQ SCH (22:52)
[2023-09-23] MEDS: *INSULIN REGULAR(HUMULIN R)HUM 100 UNIT/ML VIAL SQ PRN (23:13)
[2023-09-24] VITALS: BP 124/60; TEMP 98.1; O2SAT 98
[2023-09-24 04:00] VITALS: BP 132/72; TEMP 98.5; O2SAT 98
[2023-09-24] MEDS: BLOOD SUGAR DIAGNOSTIC 1 EACH STRIP VI SCH ×4 (07:28→21:41)
[2023-09-24] MEDS: INSULIN REGULAR, HUMAN 100 UNIT/ML 3 ML VIAL SQ PRN (07:29)
[2023-09-24 08:00] VITALS: BP 138/67; TEMP 98.3; O2SAT 98
[2023-09-24] MEDS: MEGESTROL ACETATE SUSP 400 MG/10 ML UDC PO SCH (09:04)
[2023-09-24] MEDS: PANTOPRAZOLE 40 MG TABLET.DR PO SCH (09:04)
[2023-09-24] MEDS: VITAMIN B COMP W-C 1 TAB TABLET PO SCH (09:05)
[2023-09-24] MEDS: PROPRANOLOL HCL 10 MG TABLET PO SCH ×2 (09:05→21:25)
[2023-09-24] MEDS: ASPIRIN EC 81 MG TABLET.DR PO SCH (09:05)
[2023-09-24] MEDS: ALLOPURINOL 100 MG TABLET PO SCH (09:05)
[2023-09-24] MEDS: LEVOTHYROXINE SODIUM 50 MCG TABLET PO SCH (09:05)
[2023-09-24] MEDS: HYDROXYUREA 500 MG CAPSULE PO SCH ×2 (09:06→16:39)
[2023-09-24] MEDS: GLUCERNA SHAKE 237 ML CAN PO SCH ×2 (09:06→16:39)
[2023-09-24 12:00] VITALS: BP 112/60; TEMP 98.3; O2SAT 98
[2023-09-24] MEDS: *INSULIN REGULAR(HUMULIN R)HUM 100 UNIT/ML VIAL SQ PRN ×2 (12:04→22:14)
[2023-09-24 13:51] LABS: BASOPHILS # (AUTO) 0.1 K/uL (0.0-0.2); BASOPHILS % (AUTO) 0.6 % (0.0-2.0); EOSINOPHILS # (AUTO) 0.3 K/uL (0.0-0.7); EOSINOPHILS % (AUTO) 3.3 % (0.0-6.0); HEMATOCRIT 30 % (33-45); LYMPHOCYTES % (AUTO) 10.4 % (20.0-44.0); MEAN CORPUSCULAR HEMOGLOBIN 19 PG (26.0-33.0); MEAN CORPUSCULAR HGB CONC 30 g/dl (31.0-36.0); MEAN CORPUSCULAR VOLUME 62 fL (82-100); MONOCYTES # (AUTO) 0.2 K/uL (0.1-1.30); MONOCYTES % (AUTO) 1.5 % (2.0-12.0); NEUTROPHILS # (AUTO) 8.2 K/uL (1.8-8.9); NEUTROPHILS % (AUTO) 84.2 % (43.0-81.0); RED BLOOD CELL COUNT(AUTO) 4.78 MIL/uL (4.0-5.2); RED CELL DISTRIBUTION WIDTH 22.1 % (11.5-15.0); WHITE BLOOD COUNT (AUTO) 9.7 K/uL (4.3-11.0)
[2023-09-24] MEDS: SOD FERRIC GLUC 125 MG in IV NS 0.9% 100 ML IV SCH (13:54)
[2023-09-24 13:59] LABS: PLATELET COUNT (AUTO) 962 K/uL (150-450)
[2023-09-24 16:00] VITALS: BP 112/60; TEMP 97.6; O2SAT 98
[2023-09-24 16:41] LABS: ANISOCYTOSIS 1+; EOSINOPHILS % (MANUAL) 1 % (0-4); HYPOCHROMASIA 1+; LYMPHOCYTES % (MANUAL) 8 % (16-48); NEUTROPHILS % (MANUAL) 91 (42-76); OVALOCYTES 1+; PLATELET ESTIMATE INCREASED; TARGET CELLS 1+; TEAR DROP CELLS 1+
[2023-09-24] MEDS: CEFTRIAXONE 1 G in IV D5W 50 ML IV SCH (17:06)
[2023-09-24] MEDS: DONEPEZIL 5 MG TABLET PO SCH (17:06)
[2023-09-24] MEDS: SERTRALINE HCL 50 MG TABLET PO SCH (17:06)
[2023-09-24] MEDS: AMLODIPINE BESYLATE 10 MG TABLET PO SCH (17:07)
[2023-09-24 20:00] VITALS: BP 122/64; TEMP 98.2; O2SAT 99
[2023-09-24] MEDS: ENOXAPARIN SODIUM 40 MG/0.4 ML DISP.SYRIN SQ SCH (21:41)
[2023-09-25] VITALS: BP 116/61; TEMP 98.2; O2SAT 96
[2023-09-25 04:00] VITALS: BP 119/63; TEMP 98.8; O2SAT 97
[2023-09-25 07:06] LABS: BASOPHILS % (AUTO) 0.7 % (0.0-2.0); EOSINOPHILS # (AUTO) 0.2 K/uL (0.0-0.7); EOSINOPHILS % (AUTO) 3.1 % (0.0-6.0); HEMATOCRIT 29 % (33-45); LYMPHOCYTES # (AUTO) 1.2 K/uL (0.8-4.8); MEAN CORPUSCULAR HEMOGLOBIN 19 PG (26.0-33.0); MEAN CORPUSCULAR HGB CONC 31 g/dl (31.0-36.0); MEAN CORPUSCULAR VOLUME 63 fL (82-100); MONOCYTES # (AUTO) 0.1 K/uL (0.1-1.30); MONOCYTES % (AUTO) 1.6 % (2.0-12.0); NEUTROPHILS # (AUTO) 4.9 K/uL (1.8-8.9); NEUTROPHILS % (AUTO) 75.6 % (43.0-81.0); PLATELET COUNT (AUTO) 888 K/uL (150-450); RED BLOOD CELL COUNT(AUTO) 4.64 MIL/uL (4.0-5.2); RED CELL DISTRIBUTION WIDTH 22.6 % (11.5-15.0); WHITE BLOOD COUNT (AUTO) 6.5 K/uL (4.3-11.0)
[2023-09-25 07:37] LABS: URIC ACID 2.5 mg/dL (2.6-7.2)
[2023-09-25 07:47] LABS: ALBUMIN 2.8 g/dL (3.4-5.0); BILIRUBIN,TOTAL 0.5 mg/dL (0.2-1.0); CALCIUM, SERUM 8.8 mg/dL (8.5-10.1); CREATININE 0.6 mg/dL (0.6-1.3); PHOSPHORUS 2.5 mg/dL (2.5-4.9); POTASSIUM 3.7 mmol/L (3.5-5.1); TOTAL PROTEIN, SERUM 7.8 g/dL (6.4-8.2)
[2023-09-25 08:00] VITALS: BP 129/66; TEMP 98.4; O2SAT 97
[2023-09-25] MEDS: LEVOTHYROXINE SODIUM 50 MCG TABLET PO SCH (08:28)
[2023-09-25] MEDS: BLOOD SUGAR DIAGNOSTIC 1 EACH STRIP VI SCH ×2 (08:35→12:38)
[2023-09-25 08:41] VITALS: BP 129/66; TEMP 98.4; O2SAT 97
[2023-09-25] MEDS: GLUCERNA SHAKE 237 ML CAN PO SCH (08:47)
[2023-09-25] MEDS: ALLOPURINOL 100 MG TABLET PO SCH (08:47)
[2023-09-25] MEDS: MEGESTROL ACETATE SUSP 400 MG/10 ML UDC PO SCH (08:47)
[2023-09-25] MEDS: VITAMIN B COMP W-C 1 TAB TABLET PO SCH (08:47)
[2023-09-25] MEDS: HYDROXYUREA 500 MG CAPSULE PO SCH (08:48)
[2023-09-25] MEDS: PANTOPRAZOLE 40 MG TABLET.DR PO SCH (08:48)
[2023-09-25] MEDS: PROPRANOLOL HCL 10 MG TABLET PO SCH (08:48)
[2023-09-25] MEDS: ASPIRIN EC 81 MG TABLET.DR PO SCH (08:48)
[2023-09-25] MEDS: INSULIN REGULAR, HUMAN 100 UNIT/ML 3 ML VIAL SQ PRN ×2 (08:50→12:41)
[2023-09-25 11:10] LABS: *ANA ANTI-CENTROMERE B AB <0.2 AI (0.0-0.9); *ANA ANTI-DNA(DS) AB, QN <1 IU/mL (0-9); *ANA ANTI-JO-1 <0.2 AI (0.0-0.9); *ANA ANTICHROMATIN ANTIBODY <0.2 AI (0.0-0.9); *ANA RNP ANTIBODIES 0.2 AI (0.0-0.9); *ANA SJOGREN'S ANTI-SS-A <0.2 AI (0.0-0.9); *ANA SJOGREN'S ANTI-SS-B <0.2 AI (0.0-0.9); *ANAANTI-SCLERODERMA-70 AB <0.2 AI (0.0-0.9); *ANASMITH AB <0.2 AI (0.0-0.9)
[2023-09-25 14:00] VITALS: BP 114/60; TEMP 96.9; O2SAT 97
[2023-09-25] MEDS: SOD FERRIC GLUC 125 MG in IV NS 0.9% 100 ML IV SCH (15:22)
[2023-09-25] MEDS ORDERED: HYDROXYUREA 500 MG CAPSULE PO SCH (17:00)
== END 2023-09-25 16:44 | DRG 202 ==
LOC: ER 15:10 → TELE1 20:53
PROVIDERS: ADMIT Nurse Practitioner Acute Care
PROC: 05H633Z Insertion of Infusion Device into Left Subclavian Vein, Percutaneous Approach (ICD-10-PCS; principal; 2023-09-23)
PROC: B547ZZA Ultrasonography of Left Subclavian Vein, Guidance (ICD-10-PCS; 2023-09-23)
PROC: 05H533Z Insertion of Infusion Device into Right Subclavian Vein, Percutaneous Approach (ICD-10-PCS; 2023-09-24)
PROC: B546ZZA Ultrasonography of Right Subclavian Vein, Guidance (ICD-10-PCS; 2023-09-24)
DX: J20.9 Acute bronchitis, unspecified (principal); J96.01 Acute respiratory failure with hypoxia; E87.1 Hypo-osmolality and hyponatremia; I31.39 Other pericardial effusion (noninflammatory); D47.1 Chronic myeloproliferative disease; F03.94 Unspecified dementia, unspecified severity, with anxiety; R65.10 Systemic inflammatory response syndrome (SIRS) of non-infectious origin without acute organ dysfunction; E87.20 Acidosis, unspecified; D68.69 Other thrombophilia; F41.9 Anxiety disorder, unspecified; D72.829 Elevated white blood cell count, unspecified; D45 Polycythemia vera; D75.838 Other thrombocytosis; D50.9 Iron deficiency anemia, unspecified; E03.9 Hypothyroidism, unspecified; E11.65 Type 2 diabetes mellitus with hyperglycemia; E78.5 Hyperlipidemia, unspecified; F32.A Depression, unspecified; I10 Essential (primary) hypertension; Z79.4 Long term (current) use of insulin; Z87.891 Personal history of nicotine dependence; Z79.84 Long term (current) use of oral hypoglycemic drugs; M19.90 Unspecified osteoarthritis, unspecified site; K52.9 Noninfective gastroenteritis and colitis, unspecified; D75.839 Thrombocytosis, unspecified; Z20.822 Contact with and (suspected) exposure to COVID-19
CPT/HCPCS: 36410; 36415; 36600; 70450-TC; 71045-TC; 74178; 80048-TC; 80053-TC; 80076-TC; 81001; 82272-TC; 82378; 82607-TC; 82728-TC; 82784; 82803-TC; 82962-TC; 83540-TC; 83605-TC; 83735-TC; 83880; 83935-TC; 84100-TC; 84155; 84165; 84300-TC; 84443-TC; 84484-TC; 84550-TC; 85025-TC; 85027-TC; 85378-TC; 86140-TC; 86225; 86235; 86334; 86431-TC; 87040-TC; 93307-TC; A4223; C9113; G0378; J0696; J1650; J1815; J2916; J2930; J3370; J7030; J7040; J7050; J7060; Q9967

== ENCOUNTER 2024-12-11 12:52 | Inpatient (IN) | payer MEDICARE ==
[~2024-12-11] VITALS: Ht 162.6 cm; Wt 57.2 kg
[~2024-12-11 12:52] MED LIST changes: -ATOR20TA PO; +AZIT250T13 PO; +CLON1TAB12 PO; +HYDR500C2 PO; -LISI10TA29 PO; +MEGE400O4 PO; -MELO-105 PO; -METO5TAB2 PO; -MIRT-90 PO; +VITA1TAB56 PO
[2024-12-11] MEDS ORDERED: CEFTRIAXONE 1GM BAG (ER ONLY) 50 ML IV ONE (13:16)
[2024-12-11] MEDS: CEFTRIAXONE 1GM BAG (ER ONLY) 50 ML IV ONE (13:20)
[2024-12-11 13:21] LABS: BASOPHILS % (AUTO) 0.3 % (0.0-2.0); EOSINOPHILS # (AUTO) 0.1 K/uL (0.0-0.7); EOSINOPHILS % (AUTO) 0.7 % (0.0-6.0); HEMATOCRIT 46 % (33-45); HEMOGLOBIN 14.3 g/dL (11.5-14.8); LYMPHOCYTES # (AUTO) 0.9 K/uL (0.8-4.8); LYMPHOCYTES % (AUTO) 7.6 % (20.0-44.0); MEAN CORPUSCULAR HEMOGLOBIN 24 PG (26.0-33.0); MEAN CORPUSCULAR HGB CONC 31 g/dl (31.0-36.0); MEAN CORPUSCULAR VOLUME 76 fL (82-100); MONOCYTES # (AUTO) 0.6 K/uL (0.1-1.30); MONOCYTES % (AUTO) 4.8 % (2.0-12.0); NEUTROPHILS % (AUTO) 86.6 % (43.0-81.0); PLATELET COUNT (AUTO) 699 K/uL (150-450); RED BLOOD CELL COUNT(AUTO) 6.06 MIL/uL (4.0-5.2); RED CELL DISTRIBUTION WIDTH 19.2 % (11.5-15.0); WHITE BLOOD COUNT (AUTO) 11.6 K/uL (4.3-11.0)
[2024-12-11 13:48] LABS: ALBUMIN 3.3 g/dL (3.4-5.0); BILIRUBIN,DIRECT 0.2 mg/dL (0.0-0.2); BILIRUBIN,TOTAL 0.6 mg/dL (0.2-1.0); CALCIUM, SERUM 9.2 mg/dL (8.5-10.1); CREATININE 0.8 mg/dL (0.6-1.3); POTASSIUM 3.9 mmol/L (3.5-5.1); TOTAL PROTEIN, SERUM 8.4 g/dL (6.4-8.2)
[2024-12-11 13:50] LABS: LACTIC ACID 1.1 mmol/L (0.4-2.0)
[2024-12-11 13:53] LABS: INR 1.18 (0.91-1.10); PARTIAL THROMBOPLASTIN TIME 46.7 SEC (24.3-34.3); PROTHROMBIN TIME 12.4 SECS (9.2-11.1)
[2024-12-11] MEDS: AZITHROMYCIN 500 MG in IV D5W 250 ML IV ONE (14:15)
[2024-12-11] MEDS ORDERED: GLUC1KIT IM (14:31)
[2024-12-11] MEDS ORDERED: OMEP20CA15 PO (14:31)
[2024-12-11] MEDS ORDERED: INSU100V3 SQ (14:31)
[2024-12-11] MEDS ORDERED: ALLO100T PO (14:31)
[2024-12-11] MEDS ORDERED: HYDR200T81 PO (14:31)
[2024-12-11] MEDS ORDERED: ACET325T53 PO (14:31)
[2024-12-11] MEDS ORDERED: ARTIFICIAL SALIVA PO (14:31)
[2024-12-11] MEDS ORDERED: GUAI-1189 PO (14:31)
[2024-12-11] MEDS: IV NS 0.9% 1,000 ML BAG IV PRN (15:10)
[2024-12-11] MEDS ORDERED: MAGNESIUM HYDROXIDE 30 ML UDC PO PRN (15:30)
[2024-12-11] MEDS ORDERED: ACETAMINOPHEN 325 MG TABLET PO PRN (15:30)
[2024-12-11] MEDS ORDERED: DEXTROSE 50%-WATER 50 ML DISP.SYRIN IV PRN (15:30)
[2024-12-11] MEDS ORDERED: MAG HYDROX/AL HYDROX/SIMETH 30 ML UDC PO PRN (15:30)
[2024-12-11] MEDS ORDERED: ONDANSETRON HCL/PF 4 MG/2 ML VIAL IVP PRN (15:30)
[2024-12-11] MEDS: IV NS 0.9% 1,000 ML IV PRN (15:49)
[2024-12-11] MEDS ORDERED: GUAIFENESIN/D-METHORPHAN HB 5 ML UDC PO PRN (16:00)
[2024-12-11] MEDS: PROPRANOLOL HCL 10 MG TABLET PO SCH (16:23)
[2024-12-11] MEDS: HYDROXYCHLOROQUINE 200 MG TABLET PO SCH (16:23)
[2024-12-11] MEDS: CEFTRIAXONE 1 G in IV D5W 50 ML IV SCH (16:23)
[2024-12-11] MEDS: BLOOD SUGAR DIAGNOSTIC 1 EACH STRIP IN SCH (17:19)
[2024-12-11] MEDS: INSULIN REGULAR, HUMAN 100 UNIT/ML 3 ML VIAL SQ PRN (17:19)
[2024-12-11 20:00] VITALS: BP 116/64; TEMP 98.2; O2SAT 95
[2024-12-11] MEDS: DONEPEZIL 5 MG TABLET PO SCH (22:19)
[2024-12-12] MEDS: Z GUARD REMEDY 4 OZ OINT TP PRN (05:50)
[2024-12-12 07:27] LABS: BASOPHILS % (AUTO) 0.4 % (0.0-2.0); EOSINOPHILS % (AUTO) 0.5 % (0.0-6.0); HEMATOCRIT 43 % (33-45); HEMOGLOBIN 13.1 g/dL (11.5-14.8); LYMPHOCYTES % (AUTO) 12.7 % (20.0-44.0); MEAN CORPUSCULAR HEMOGLOBIN 23 PG (26.0-33.0); MEAN CORPUSCULAR HGB CONC 31 g/dl (31.0-36.0); MEAN CORPUSCULAR VOLUME 76 fL (82-100); MONOCYTES # (AUTO) 0.7 K/uL (0.1-1.30); MONOCYTES % (AUTO) 8.3 % (2.0-12.0); NEUTROPHILS # (AUTO) 6.4 K/uL (1.8-8.9); NEUTROPHILS % (AUTO) 78.1 % (43.0-81.0); PLATELET COUNT (AUTO) 665 K/uL (150-450); RED BLOOD CELL COUNT(AUTO) 5.61 MIL/uL (4.0-5.2); RED CELL DISTRIBUTION WIDTH 19.5 % (11.5-15.0); WHITE BLOOD COUNT (AUTO) 8.2 K/uL (4.3-11.0)
[2024-12-12] MEDS: PANTOPRAZOLE 40 MG TABLET.DR PO SCH (07:31)
[2024-12-12] MEDS: LEVOTHYROXINE SODIUM 50 MCG TABLET PO SCH (07:31)
[2024-12-12 07:45] LABS: CALCIUM, SERUM 8.8 mg/dL (8.5-10.1); CREATININE 0.6 mg/dL (0.6-1.3); PHOSPHORUS 2.6 mg/dL (2.5-4.9); POTASSIUM 3.5 mmol/L (3.5-5.1)
[2024-12-12 08:00] VITALS: BP 115/61; TEMP 98.4; O2SAT 96
[2024-12-12] MEDS: MEGESTROL ACETATE SUSP 400 MG/10 ML UDC PO SCH (08:19)
[2024-12-12] MEDS: ASPIRIN EC 81 MG TABLET.DR PO SCH (08:19)
[2024-12-12] MEDS: AMLODIPINE BESYLATE 10 MG TABLET PO SCH (08:19)
[2024-12-12] MEDS: SERTRALINE HCL 50 MG TABLET PO SCH (08:20)
[2024-12-12] MEDS: ALLOPURINOL 100 MG TABLET PO SCH (08:20)
[2024-12-12] MEDS: AZITHROMYCIN 500 MG in IV D5W 250 ML IV SCH (13:02)
[2024-12-12 16:00] VITALS: BP 112/64; TEMP 97.4; O2SAT 96
[2024-12-12 16:22] LABS: APPEARANCE,URINE TURBID (CLEAR); BILIRUBIN,URINE 2+ (NEGATIVE); BLOOD, URINE 1+ Ery/uL (NEGATIVE); COLOR,URINE YELLOW (YELLOW); KETONES,URINE TRACE mg/dL (NEGATIVE); LEUKOCYTE ESTERASE ,URINE 2+ (NEGATIVE); NITRITE, URINE POSITIVE (NEGATIVE); PROTEIN,URINE 1+ mg/dl (NEGATIVE); UGLUCOSE NEGATIVE (NEGATIVE)
[2024-12-12 16:40] LABS: ADD URINE CULTURE YES; BACTERIA,URINE Many /HPF (None Seen); SQUAMOUS EPITHELIAL CELL,UR Few /HPF (None Seen)
[2024-12-12 20:00] VITALS: BP 111/61; TEMP 97.6; O2SAT 96
[2024-12-13 08:00] VITALS: BP 131/72; TEMP 99.3; O2SAT 96
[2024-12-13] MEDS: HYDROXYUREA 500 MG CAPSULE PO SCH (08:23)
[2024-12-13 08:43] LABS: BASOPHILS % (AUTO) 0.4 % (0.0-2.0); EOSINOPHILS % (AUTO) 0.4 % (0.0-6.0); HEMATOCRIT 44 % (33-45); HEMOGLOBIN 13.6 g/dL (11.5-14.8); LYMPHOCYTES # (AUTO) 1.1 K/uL (0.8-4.8); LYMPHOCYTES % (AUTO) 12.7 % (20.0-44.0); MEAN CORPUSCULAR HEMOGLOBIN 24 PG (26.0-33.0); MEAN CORPUSCULAR HGB CONC 31 g/dl (31.0-36.0); MEAN CORPUSCULAR VOLUME 76 fL (82-100); MONOCYTES # (AUTO) 0.6 K/uL (0.1-1.30); MONOCYTES % (AUTO) 7.2 % (2.0-12.0); NEUTROPHILS # (AUTO) 7.1 K/uL (1.8-8.9); NEUTROPHILS % (AUTO) 79.3 % (43.0-81.0); PLATELET COUNT (AUTO) 613 K/uL (150-450); RED BLOOD CELL COUNT(AUTO) 5.77 MIL/uL (4.0-5.2); RED CELL DISTRIBUTION WIDTH 19.5 % (11.5-15.0)
[2024-12-13 08:58] LABS: CALCIUM, SERUM 8.7 mg/dL (8.5-10.1); CREATININE 0.5 mg/dL (0.6-1.3); PHOSPHORUS 2.4 mg/dL (2.5-4.9); POTASSIUM 3.2 mmol/L (3.5-5.1)
[2024-12-13 16:00] VITALS: BP 111/60; TEMP 99; O2SAT 96
[2024-12-13] MEDS: K PHOS NEUTRAL 250 MG TABLET PO ONE (17:07)
[2024-12-13 20:00] VITALS: BP 112/59; TEMP 98.4; O2SAT 95
[2024-12-14 06:30] LABS: BASOPHILS % (AUTO) 0.5 % (0.0-2.0); EOSINOPHILS # (AUTO) 0.1 K/uL (0.0-0.7); EOSINOPHILS % (AUTO) 0.6 % (0.0-6.0); HEMATOCRIT 43 % (33-45); HEMOGLOBIN 13.5 g/dL (11.5-14.8); LYMPHOCYTES # (AUTO) 1.2 K/uL (0.8-4.8); MEAN CORPUSCULAR HEMOGLOBIN 24 PG (26.0-33.0); MEAN CORPUSCULAR HGB CONC 32 g/dl (31.0-36.0); MEAN CORPUSCULAR VOLUME 75 fL (82-100); MONOCYTES # (AUTO) 0.5 K/uL (0.1-1.30); MONOCYTES % (AUTO) 6.2 % (2.0-12.0); NEUTROPHILS % (AUTO) 78.7 % (43.0-81.0); PLATELET COUNT (AUTO) 736 K/uL (150-450); RED BLOOD CELL COUNT(AUTO) 5.67 MIL/uL (4.0-5.2); RED CELL DISTRIBUTION WIDTH 19.8 % (11.5-15.0); WHITE BLOOD COUNT (AUTO) 8.9 K/uL (4.3-11.0)
[2024-12-14 06:47] LABS: CALCIUM, SERUM 9.3 mg/dL (8.5-10.1); CREATININE 0.5 mg/dL (0.6-1.3); MAGNESIUM 2.1 mg/dL (1.8-2.4); PHOSPHORUS 2.4 mg/dL (2.5-4.9)
[2024-12-14 08:00] VITALS: BP 121/63; TEMP 98.4; O2SAT 95
[2024-12-14] MEDS: POTASSIUM CHLORIDE 20 MEQ TAB.PRT.SR PO SCH (10:28)
[2024-12-14] MEDS ORDERED: AZIT250T13 PO (13:04)
[2024-12-14] MEDS ORDERED: CEFU500T66 PO (13:04)
[2024-12-14 16:00] VITALS: BP 114/60; TEMP 98.3; O2SAT 97
[2024-12-14] MEDS: K PHOS NEUTRAL 250 MG TABLET PO ONE (16:08)
[2024-12-14 16:11] VITALS: BP 115/60
== END 2024-12-14 17:30 | DRG 177 ==
LOC: ER 12:55 → MED 13:52
PROVIDERS: ADMIT Nurse Practitioner Acute Care
DX: J15.69 Pneumonia due to other Gram-negative bacteria (principal); G93.41 Metabolic encephalopathy; E44.1 Mild protein-calorie malnutrition; R62.7 Adult failure to thrive; E86.0 Dehydration; D45 Polycythemia vera; E03.9 Hypothyroidism, unspecified; I10 Essential (primary) hypertension; Z87.891 Personal history of nicotine dependence; E78.5 Hyperlipidemia, unspecified; E88.09 Other disorders of plasma-protein metabolism, not elsewhere classified; E11.9 Type 2 diabetes mellitus without complications; Z79.4 Long term (current) use of insulin; K21.9 Gastro-esophageal reflux disease without esophagitis; M19.90 Unspecified osteoarthritis, unspecified site; F41.9 Anxiety disorder, unspecified; F03.90 Unspecified dementia, unspecified severity, without behavioral disturbance, psychotic disturbance, mood disturbance, and anxiety; Z85.830 Personal history of malignant neoplasm of bone; Z79.890 Hormone replacement therapy; Z79.82 Long term (current) use of aspirin; Z79.899 Other long term (current) drug therapy; Y95 Nosocomial condition; R53.1 Weakness; E87.6 Hypokalemia; R79.89 Other specified abnormal findings of blood chemistry
CPT/HCPCS: 36415; 71045-TC; 80048-TC; 80076-TC; 81001; 82962-TC; 83605-TC; 83735-TC; 84100-TC; 85025-TC; 85730-TC; 87040-TC; 87081-TC; 87086-TC; 92526; 92611-TC; A4223; G0378; J0456; J0696; J1815; J7030; J7040; J7060